=== PATIENT | female | born 2005 | race Caucasian/White ===

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

== ENCOUNTER 2023-01-15 13:47 | Outpatient (REF) | payer OTHER, SELFPAY | END 2023-01-15 13:48 | disposition home or self-care (01) | LOC: LBN 13:47 | PROVIDERS: PCP Pediatrics; Visit Provider Obstetrics & Gynecology | DX: R35.0 Frequency of micturition (principal) | CPT/HCPCS: 87077; 87086; 87186 ==

== ENCOUNTER 2023-02-27 17:59 | Emergency (ER) | payer OTHER, SELFPAY ==
[2023-02-27 18:09] VITALS: BP 115/50; PULSE 98; RESP 22; TEMP 37.2; O2SAT 98
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
[2023-02-27 18:31] LABS: HCG Qual (Urine) Negative
[2023-02-27 18:32] LABS: Bilirubin Negative (Negative); Blood Trace-intact (Negative); Clarity Clear (Clear); Glucose Negative (Negative); Ketones Negative (Negative); Leukocyte Esterase Small (Negative); Nitrite Negative (Negative); Urobilinogen 0.2 mg/dL (Up to 0.2)
[2023-02-27 18:44] LABS: Bacteria Negative HPF (Negative); C & S Indicated? No/Sq. Contamination; Crystals Negative HPF (Negative); Epithelial Cells Moderate HPF (Negative); Mucus Trace (Negative); Other Cells Rare Transitional (Negative); RBC 0-2 HPF (0-2)
[2023-02-27] MEDS: Cefpodoxime 200 MG TAB PO (18:51)
== END 2023-02-27 18:52 | disposition home or self-care (01) ==
PROVIDERS: Emergency Provider Physician Assistant; PCP Pediatrics
DX: N39.0 Urinary tract infection, site not specified
CPT/HCPCS: 99283; 81003; 81015; 81025; 99284

== ENCOUNTER 2023-03-04 16:35 | Emergency (ER) | payer OTHER, SELFPAY ==
[2023-03-04 16:44] VITALS: BP 117/47; PULSE 90; RESP 18; TEMP 37.2; O2SAT 98
[2023-03-04 16:53] VITALS: BP 117/47; PULSE 90; RESP 18; TEMP 37.2; O2SAT 98
--- NOTE | 2023-03-04 17:00 | DI.CT_ITS ---
Exam(s) CT ABDOMEN PELVIS W EXAM: CT ABDOMEN PELVIS W CLINICAL HISTORY: RLQ pain TECHNIQUE: Imaging Protocol: Axial computed tomography images with coronal and sagittal reformatted images were created and reviewed CONTRAST MATERIAL: Intravenous: Omnipaque 350 Contrast volume:87 mL Oral: No COMPARISON: CT CT ABDOMEN PELVIS W from 11/04/2020 FINDINGS: ABDOMEN: Lung Bases: Normal where visualized. Liver: Normal density. There is a 2-3 mm hypodensity in the right lobe of the liver. It is too small for further characterization. No suspicious hepatic lesions are seen. Portal, Superior Mesenteric, and Splenic Veins: Unremarkable. Gallbladder and Biliary Tract: No radiodense calculus or dilation. Pancreas: Normal density, no abnormal calcifications or inflammatory process. Spleen: Normal. Adrenals: No masses seen. Kidneys: Normal size, contour and axis. No radiodense stones or obstructive uropathy. No masses seen. Abdominal Aorta: Abdominal portion non-dilated. Bowel: No obstruction or bowel wall thickening. Appendix is unremarkable. Peritoneal Cavity: No ascites, collection or mesenteric inflammatory response. No free air. Lymph Nodes: Within normal limits. Bones: Within normal limits for the patient's age. Soft Tissues: Unremarkable. PELVIS: Bladder: Symmetric distention, no gross wall thickening. Reproductive Organs: Unremarkable as visualized. Lymph Nodes: Within normal limits. Bones: Within normal limits for the patient's age. IMPRESSION: 1. No acute abdominal or pelvic process. 2. Normal appendix. 3. Findings were discussed with the emergency department at 6:31 p.m. on 03/04/2023. RADIATION DOSE DELIVERED: Total DLP DATA REPOSITORY: All CT scans at this facility are submitted to the National Radiology Data Registry (NRDR) Dose Index Registry (DIR) with the [employer] (ACR). RADIATION OPTIMIZATION: All CT scans at this facility use at least one of these dose optimization te chniques: automated exposure control; mA and/or kV adjustment per patient size (includes targeted exa ms where dose is matched to clinical indication); or iterative reconstruction.
[2023-03-04 17:03] LABS: Bilirubin Negative (Negative); Blood Trace-lysed (Negative); Clarity Clear (Clear); Glucose Negative (Negative); Ketones Negative (Negative); Leukocyte Esterase Negative (Negative); Nitrite Negative (Negative); Urobilinogen 0.2 mg/dL (Up to 0.2); pH 6.5 (5-8)
[2023-03-04 17:11] LABS: Bacteria Negative HPF (Negative); C & S Indicated? No; Casts Negative LPF (Negative); Crystals Negative HPF (Negative); Epithelial Cells Rare HPF (Negative); Mucus Negative (Negative); RBC 0-2 HPF (0-2); WBC Negative HPF (0-5)
[2023-03-04] MEDS: ACETAMINOPHEN 1,000 MG/100 ML BTL 400 MG IVPB (17:29)
[2023-03-04] MEDS: Lactated Ringers 1,000 ML 1000 ML IV (17:29)
[2023-03-04 17:37] LABS: Abs Immature Grans 0.01 10^3/uL (0.0-0.06); Absolute Basophil Count 0.04 10^3/uL (0.0-0.2); Absolute Eosinophil Count 0.12 10^3/uL (0.0-0.7); Absolute Lymphocyte Count 3.13 10^3/uL (1.2-3.4); Absolute Monocyte Count 0.42 10^3/uL (0.1-0.8); Absolute Neutrophil Count 3.65 10^3/uL (1.2-6.7); Basophils % 0.5; Eosinophils % 1.6; HCT 39.7 % (36.0-46.0); HGB 13.9 g/dL (11.2-15.7); Immature Grans % 0.1; Lymphocytes % 42.5; MCH 31.8 pg (27.0-33.0); MCV 91 fL (80-95); MPV 10.7 fL (8.0-11.0); Monocytes % 5.7; Neutrophils % 49.6; Platelet Count 243 10^3/uL (130-400); RBC 4.37 10^6/uL (3.93-5.22); RDW 11.9 % (11.7-14.6); RDW-SD 39.6 fL; WBC 7.37 10^3/uL (4.4-10.8)
[2023-03-04 17:57] LABS: ALT 15 U/L (14-59); AST 10 U/L (15-37); Albumin 4.7 g/dL (3.4-5.0); Alkaline Phosphatase 82 U/L (46-116); Anion Gap 11.4 mmol/L (3-11); BUN 10 mg/dL (7-18); Bilirubin, Total 0.5 mg/dL (0.2-1.0); CO2 24.6 mmol/L (21.0-32.0); CREATININE 0.7 mg/dL (0.55-1.02); Calcium 9.4 mg/dL (8.5-10.1); Chloride 107 mmol/L (98-107); Estimated GFR 127.69 (mL/min/1.73m2); Glucose 85 mg/dL (74-106); Lipase 35 U/L (16-77); Sodium 143 mmol/L (136-145); Total Protein 7.7 g/dL (6.4-8.2)
[2023-03-04] MEDS: Normal Saline - Diluent 50 ML VIAL IJ (18:04)
[2023-03-04] MEDS: Omnipaque 350 MG/ML 100 ML BTL IJ (18:05)
[2023-03-04] MEDS: Prochlorperazine 10 MG TAB PO (19:03)
[2023-03-04 19:04] VITALS: BP 117/47; PULSE 90; RESP 18; TEMP 37.2; O2SAT 98
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
== END 2023-03-04 19:05 | disposition home or self-care (01) ==
PROVIDERS: Emergency Provider Physician Assistant; PCP Pediatrics
DX: R10.31 Right lower quadrant pain (principal); R10.32 Left lower quadrant pain
CPT/HCPCS: 80053; 83690; 96361; 96374; 99285; 74177; 81003; 81015; 85025; 99284; J0131; J3490

== ENCOUNTER 2023-03-04 16:46 | Outpatient (REF) | payer OTHER, SELFPAY | END 2023-03-04 16:47 | disposition home or self-care (01) | LOC: LBN 16:46 | PROVIDERS: PCP Pediatrics; Visit Provider Nurse Practitioner Family | DX: N30.01 Acute cystitis with hematuria (principal) | CPT/HCPCS: 87086 ==

== ENCOUNTER 2023-06-23 06:31 | Emergency (ER) | payer OTHER, SELFPAY ==
[2023-06-23 06:42] VITALS: BP 131/65; PULSE 111; RESP 16; TEMP 36.7; O2SAT 99
[2023-06-23 07:08] VITALS: BP 131/65; PULSE 111; RESP 16; TEMP 36.7; O2SAT 99
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
[2023-06-23] MEDS: Erythromycin Ophth Oint 3.5 GM TUBE OP (07:09)
[2023-06-23] MEDS: Fluorescein STRIPS 100/BOX 1 MG OP (07:09)
[2023-06-23] MEDS: Tetracaine 0.5% 4 ML BTL OP (07:10)
[2023-06-23] MEDS: Balanced Salt Solution 15 ML BTL OP (07:10)
== END 2023-06-23 07:29 | disposition home or self-care (01) ==
PROVIDERS: Emergency Provider Emergency Medicine; PCP Pediatrics
DX: S05.02XA Injury of conjunctiva and corneal abrasion without foreign body, left eye, initial encounter (principal); W50.0XXA Accidental hit or strike by another person, initial encounter
CPT/HCPCS: 99283

== ENCOUNTER 2023-08-15 15:21 | Outpatient (REF) | payer OTHER, SELFPAY | END 2023-08-15 15:22 | disposition home or self-care (01) | LOC: LBN 15:21 | PROVIDERS: PCP Pediatrics; Visit Provider Advanced Practice Midwife | DX: N89.8 Other specified noninflammatory disorders of vagina (principal); B37.9 Candidiasis, unspecified | CPT/HCPCS: 87480; 87510; 87660 ==

== ENCOUNTER 2023-09-26 17:05 | Emergency (ER) | payer OTHER, SELFPAY ==
[2023-09-26 17:08] VITALS: BP 119/74; PULSE 115; RESP 18; TEMP 37; O2SAT 96
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
[2023-09-26] MEDS: Amox. 875/Clav. 125, 2 TABS/BTL 1 TAB PO (18:54)
== END 2023-09-26 19:01 | disposition home or self-care (01) ==
PROVIDERS: Emergency Provider Physician Assistant; PCP Pediatrics
DX: R68.84 Jaw pain (principal); K04.7 Periapical abscess without sinus
CPT/HCPCS: 99283

== ENCOUNTER 2024-03-19 13:25 | Outpatient (CLI) | payer OTHER, SELFPAY ==
[2024-03-19 12:38] LABS: HCG Quant, Pregnancy 3 mIU/mL (1-3)
--- OUTSIDE RECORDS SUMMARY | 2024-03-19 13:33 | XMS_ITS | Clinical Summary ---
Author Organization [facility] Address [facility] [place] [address] Care Team Providers Care Turkey Cleaner Name Role Phone Abbey Romero MD Primary Care Provider [phone] Social History Tobacco Use Types Packs/Day Years Used Date Smoking Tobacco: Never Assessed Sex and Gender Information Value Date Recorded Sex Assigned at Not on file Gender Identity Not on file Sexual Orientation Not on file Plan of Treatment Health Maintenance Due Date Last Done Comments Chlamydia Screening 2018 HPV vaccine (1 - 3-dose series) 2018 HIV screen 2021 Hepatitis C Screening 2021 Hepatitis B vaccine (0-59 yrs) (1) 2022 Tetanus/Diphtheria/Pertussis Vaccines (1 - Tdap) 05/06 Covid-19 Vaccine (1 - 2023- season) 2024 Influenza (Flu) vaccine (1 o f 1 - Influenza standard series) 01/05/2024 Care Teams Turkey Cleaner Relationship Specialty Start Date End Date Abbey Romero MD [facility] [place] [address] PCP - General 03/28/10
--- OUTSIDE RECORDS SUMMARY | 2024-03-19 13:33 | XMS_ITS | Encounter Summary ---
Author Organization [facility] Address [address] [place] [address] Care Team Providers Care Casual Shoe Inspector Name Role Phone Unknown, Provider Primary Care Provider Addy aldana Encounter Details Date Type Department Care Team (Late st Contact Info) Description 01/29/2020 Lab Requisition [facility] Pathology & Laboratory Medicine - [facility] [address] [place] [address] Outr Resulting Lab, Provider Social History Tobacco Use Types Packs/Day Years Used Date Smoking Tobacco: Never Assessed Comments Unknown Sex and Gender Information Value Date Recorded Sex Assigned at Not on file Legal Sex Female 12:08 EDT Gender Identity Not on file Sexual Orientation Not on file documented as of this encounter Plan of Treatment Not on file documented as of this encounter Procedures Procedure Name Priority Date/Time Associated Diagnosis Comments DO NOT ORDER STANDALONE - BROAD COVID TEST Today 01/29/2020 9:05 EDT COVID-19 TESTING Routine 01/29/2020 9:05 EDT documented in this encounter Results * DO NOT ORDER STANDALONE - BROAD COVID TEST (01/29/2020 9:05 EDT) COVID-19 rt-PCR Result NEGATIVE Negative 01/31/2020 0:01 EDT [facility] Comment: 2019-novel Coronavirus (2019-nCoV) not detected by the qRT-PCR assay. Consider testing for other respiratory viruses or re-collecting for 2019-nCoV testing. Note: Optimum timing for peak viral levels during infections caused by 2019-nCoV have not been determined. Collection of multiple specimens from the same patient may be necessary to detect the virus. Limitations Positive results are indicative of active infection with SARS-CoV-2 but do not rule out bacterial infection or co-infection with other viruses. The agent detected may not be the definite cause of disease. In addition, detection of viral RNA may not indicate the presence of infectious virus or that SARS-CoV-2 is the causative agent for clinical symptoms. Negative results do not preclude SARS-CoV-2 infection and should not be used as the sole basis for patient management decisions. Negative results must be combined with clinical observations, patient history, and epidemiological information. False negative results may also occur if amplification inhibitors are present in the specimen or if inadequate numbers of organisms are present in the specimen. Optimum specimen types and timing for peak viral levels during infections caused by SARS-CoV-2 have not been fully determined. Collection of multiple specimens (types and time points) from the same patient may be necessary to detect the virus. The test was validated for use with upper respiratory specimens obtained via nasopharyngeal or oropharyngeal swabs in VTM, UTM, M4, M5, M6, saline, and MTM media. The performance of this test has not been established for other specimens. Specimens collected using other FDA recommended Specimen Collection Materials listed in the FDA COVID-19 Diagnostic Technologies communication (July 30, 2019) are processed with the caveat that they were not all validated for use with this test and the result must be interpreted in this context. Furthermore, a false negative results may occur if a specimen is improperly collected, transported or handled. If the virus mutates in the RT-PCR target region, SARS-CoV-2 may not be detected or may be detected less predictably. Inhibitors or other types of interference may produce a false negative result. An interference study evaluating the effect of common cold medications was not performed. This test is not FDA-cleared but its performance characteristics were established by our CLIA-certified, CAP-accredited, high complexity laboratory in accordance with CLIA regulations, [employer] (CAP) guidelines (Jul 23, 2019), and FDA guidance (Jul 04, 2019). This test is only for use under the Food and Drug Administration's Emergency Use Authorization. Swab ENTIRE NASOPHARYNX / Unknown 01/29/2020 9:05 EDT 01/29/2020 18:38 EDT us Provider Outr Resulting Lab MICROBIOLOGY - GENER AL ORDERABLES Final Result [employer] [place], [place] * COVID-19 TESTING (01/29/2020 9:05 EDT) COVID-19 rt-PCR Result NEGATIVE Negative 01/31/2020 2:23 EDT [facility] Comment: 2019-novel Coronavirus (2019-nCoV) not detected by the qRT-PCR assay. Consider testing for other respiratory viruses or re-collecting for 2019-nCoV testing. Note: Optimum timing for peak viral levels during infections caused by 2019-nCoV have not been determined. Collection of multiple specimens from the same patient may be necessary to detect the virus. Limitations Positive results are indicative of active infection with SARS-CoV-2 but do not rule out bacterial infection or co-infection with other viruses. The agent detected may not be the definite cause of disease. In addition, detection of viral RNA may not indicate the presence of infectious virus or that SARS-CoV-2 is the causative agent for clinical symptoms. Negative results do not preclude SARS-CoV-2 infection and should not be used as the sole basis for patient management decisions. Negative results must be combined with clinical observations, patient history, and epidemiological information. False negative results may also occur if amplification inhibitors are present in the specimen or if inadequate numbers of organisms are present in the specimen. Optimum specimen types and timing for peak viral levels during infections caused by SARS-CoV-2 have not been fully determined. Collection of multiple specimens (types and time points) from the same patient may be necessary to detect the virus. The test was validated for use with upper respiratory specimens obtained via nasopharyngeal or oropharyngeal swabs in VTM, UTM, M4, M5, M6, saline, and MTM media. The performance of this test has not been established for other specimens. Specimens collected using other FDA recommended Specimen Collection Materials listed in the FDA COVID-19 [employer] communication (July 30, 2019) are processed with the caveat that they were not all validated for use with this test and the result must be interpreted in this context. Furthermore, a false negative results may occur if a specimen is improperly collected, transported or handled. If the virus mutates in the RT-PCR target region, SARS-CoV-2 may not be detected or may be detected less predictably. Inhibitors or other types of interference may produce a false negative result. An interference study evaluating the effect of common cold medications was not performed. This test is not FDA-cleared but its performance characteristics were established by our CLIA-certified, CAP-accredited, high complexity laboratory in accordance with CLIA regulations, [employer] (CAP) guidelines (Jul 23, 2019), and FDA guidance (Jul 04, 2019). This test is only for use under the Food and Drug Administration's Emergency Use Authorization. Performing Lab [employer] [facility] 01/31/2020 2:23 EDT [facility] Swab 01/29/2020 9:05 EDT 01/29/2020 18:38 EDT us Provider Outr Resulting Lab MICROBIOLOGY - GENER AL ORDERABLES Final Result [facility] [address] [place] [address] [facility] [place], [place] documented in this encounter Visit Diagnoses Not on filedocumented in this encounter Care Teams Casual Shoe Inspector Relationship Specialty Start Date End Date Unknown, Provider, PCP - General 01/05/20 documented as of this encounter
--- OUTSIDE RECORDS SUMMARY | 2024-03-19 13:33 | XMS_ITS | Encounter Summary ---
Author Organization [facility] Address [address] [place] [address] Care Team Providers Care Branch Service Representative Name Role Phone Unknown, Provider Primary Care Provider Unava ilable Encounter Details Date Type Department Care Team (Late st Contact Info) Description 02/01/2020 Lab Requisition [facility] Pathology & Laboratory Medicine - [address] [address] Edmond Alba, [address] [place] [address] Hypertrophy of tonsils; Halitosis Social History Tobacco Use Types Packs/Day Years Used Date Smoking Tobacco: Never Assessed Interpersonal Safety Answer Date Record ed Physically Hurt Never 02/05/2020 Verbally Threaten Not on file 02/05/2020 Comments Unknown Sex and Gender Information Value Date Recorded Sex Assigned at Not on file Legal Sex Female 12:08 EDT Gender Identity Not on file Sexual Orientation Not on file documented as of this encounter Plan of Treatment Not on file documented as of this encounter Procedures Procedure Name Priority Date/Time Associated Diagnosis Comments SURGICAL PATHOLOGY Today 02/01/2020 7:55 EDT Hypertrophy of tonsils Halitosis documented in this encounter Results * SURGICAL PATHOLOGY (02/01/2020 7:55 EDT) Final Diagnosis A. TONSIL, RIGHT, TONSILLECTOMY: - Lymphoid tissue consistent with tonsil with no specific gross pathologic features. Gross only. B. TONSIL, LEFT, TONSILLECTOMY: - Lymphoid tissue consistent with tonsil with no specific gross pathologic features. Gross only. 02/04/2020 13:06 EDT [facility] Attestation By the signature below, the attending physician certifies that they have 1) personally conducted a gross and/or microscopic examination of the described specimen(s), and/or personally interpreted the results of laboratory testing of the described specimen(s), and 2) personally rendered or confirmed the above diagnosis. 02/04/2020 13:06 [facility] at 1306 Clinical History Chronic tonsil hypertrophy; tonsil stones; halitosis 02/04/2020 13:06 T [facility] Gross Description A. Received in formalin labelled with proper patient identification (initials T, M) and right tonsil is a 3.5 x 2.5 x 2.4 cm ovoid palatine tonsil. The mucosal surface is pink-acevedo with prominent crypts and a moderate amount of attached blood clot. Sectioning reveals lobulated pink-acevedo cut surfaces. The crypts contain a minute amount of grumous yellow white material. No masses or lesions identified. The specimen is submitted for gross examination only. No sections submitted. B. Received in formalin labelled with proper patient identification (initials T, M) and left tonsil is a 3.2 x 2.5 x 2.0 cm palatine tonsil. The mucosal surface is pink-acevedo with prominent crypts. Sectioning reveals lobulated pink-acevedo cut surfaces. The crypts contain a moderate amount of grumous yellow white material. No masses or lesions are identified. The specimen is submitted for gross examination only. No sections submitted. CARIN MARIEUC 02/03/2020 10:11 02/04/2020 13:06 EDT [facility] Performing Lab [facility] 02/04/2020 13:06 T [facility] Scanned Images 02/04/2020 13:06 T [facility] Tissue SPECIMEN FROM TONSIL / Unknown 02/01/2020 7:55 EDT 02/01/2020 16:15 EDT Tissue specimen (specimen) SPECIMEN FROM TONSIL / Unknown 02/01/2020 7:55 EDT 02/01/2020 16:15 EDT us Edmond Alba DO PATHOLOGY ORDERABLES Fi nal Result [facility] [address] [place] [id number] documented in this encounter Visit Diagnoses Diagnosis Hypertrophy of tonsils Hypertrophy of tonsils alone Halitosis Other symptoms involving head and neck documented in this encounter Care Teams Branch Service Representative Relationship Specialty Start Date End Date Unknown, Provider, PCP - General 01/05/20 documented as of this encounter
--- OUTSIDE RECORDS SUMMARY | 2024-03-19 13:33 | XMS_ITS | Encounter Summary ---
Author Organization [facility] Address [address] [place] [address] Care Team Providers Care Tug Boat Captain Name Role Phone Unknown, Provider Primary Care Provider Unava ilable Encounter Details Date Type Department Care Team (Late st Contact Info) Description 04/09/2022 Lab Requisition [facility] Pathology & Laboratory Medicine - [facility] [address] [place] [address] Outr Resulting Lab, Provider Social History Tobacco [...] Procedure Name Priority Date/Time Associated Diagnosis Comments HOLD SST Today 04/09/2022 10:55 EST RUBELLA IGG ANTIBODY Today 04/09/2022 10:55 EST VARICELLA IGG ANTIBODY Today 04/09/2022 10:55 EST documented in this encounter Results * HOLD SST (04/09/2022 10:55 EST) Hold Hold 04/09/2022 17:46 EST [facility] Blood VENOUS BLOOD / Unknown 04/09/2022 10:55 EST 04/09/2022 16:41 EST us Provider Outr Resulting Lab LAB INFO SERVICE AND SUPPORT & PHONE RESULT Final Result [facility] [address] [place] [address] * VARICELLA IGG ANTIBODY (04/09/2022 10:55 EST) Varicella IgG Ab Negative See Note 04/10/2022 10:16 EST [facility] Comment:Absence of detectabl e Varicella Zoster virus IgG antibodies. A negative result generally indicates no detectable antibody, but does not rule out acute infection. If VZV exposure is suspected, a second sample should be collected and tested no less than one or two weeks later. Blood VENOUS BLOOD / Unknown 04/09/2022 10:55 EST 04/09/2022 16:41 EST us Provider Outr Resulting Lab IMMUNOLOGY AND SEROL OGY ORDERABLES Final Result Performing Organization Address [facility] Co de Phone Number [facility] [address] [place] [address] * RUBELLA IGG ANTIBODY (04/09/2022 10:55 EST) Rubella IgG Ab Negative See Note 04/10/2022 10:28 EST [facility] Comment:Sample is considered negative for IgG antibodies to Rubella virus. A negative result presumes that immunity has not been acquired. If exposure to Rubella virus is suspected despite a negative finding, a second specimen should be collected and tested for Rubella IgG Ab one or two weeks later. Blood VENOUS BLOOD / Unknown 04/09/2022 10:55 EST 04/09/2022 16:41 EST us Provider Outr Resulting Lab CHEMISTRY & BLOOD GA S ORDERABLES Final Result Performing Organization Address City/[facility] Co de Phone Number [facility] [address] [place] [address] documented in this encounter Visit Diagnoses Not on filedocumented in this encounter Care Teams Tug Boat Captain Relationship Specialty Start Date End Date Unknown, Provider, PCP - General 01/05/20 documented as of this encounter
--- OUTSIDE RECORDS SUMMARY | 2024-03-19 13:33 | XMS_ITS | Encounter Summary ---
Author Organization [facility] Address [address] [place] [address] Care Team Providers Care Petrography Teacher Name Role Phone Unknown, Provider Primary Care Provider Unava ilable Encounter Details Date Type Department Care Team (Late st Contact Info) Description 09/13/2021 Lab Requisition [facility] Pathology & Laboratory Medicine - [address] [address] Outr Resulting Lab, Provider Social History Tobacco [...] Procedure Name Priority Date/Time Associated Diagnosis Comments CHLAMYDIA/N. GONORRHOEAE AMPLIFIED NUCLEIC ACID Routine 09/12/2021 15:25 EDT documented in this encounter Results * CHLAMYDIA/N. GONORRHOEAE AMPLIFIED RNA (09/12/2021 15:25 EDT) Neisseria gonorrhoeae Result Negative Negative 09/14/2021 14:33 EDT [facility] Chlamydia trachomatis Result Negative Negative 09/14/2021 14:33 EDT [facility] Swab ENTIRE VAGINA / Unknown 09/12/2021 15:25 EDT 09/13/2021 17:08 EDT us Provider Outr Resulting Lab MICROBIOLOGY - GENER AL ORDERABLES Final Result [facility] [address] [place] [address] documented in this encounter Visit Diagnoses Not on filedocumented in this encounter Care Teams Petrography Teacher Relationship Specialty Start Date End Date Unknown, Provider, PCP - General 01/05/20 documented as of this encounter
--- OUTSIDE RECORDS SUMMARY | 2024-03-19 13:33 | XMS_ITS | Encounter Summary ---
Author Organization [facility] Address [address] [place] [address] Care Team Providers Care Sampler Pickup Name Role Phone Unknown, Provider Primary Care Provider Unava ilable Encounter Details Date Type Department Care Team (Late st Contact Info) Description 08/01/2022 Lab Requisition [facility] Pathology & Laboratory Medicine - [facility] [address] [place] [address] Outr Resulting Lab, Provider Social History Tobacco [...] Comments CHLAMYDIA/N. GONORRHOEAE AMPLIFIED NUCLEIC ACID Routine 07/31/2022 13:15 EDT documented in this encounter Results * CHLAMYDIA/N. GONORRHOEAE AMPLIFIED RNA (07/31/2022 13:15 EDT) Neisseria gonorrhoeae Result Negative Negative 08/02/2022 13:14 EDT [facility] Chlamydia trachomatis Result Negative Negative 08/02/2022 13:14 EDT [facility] Urine URINE / Unknown 07/31/2022 1 3:15 EDT 08/01/2022 20:13 EDT Narrative [facility] - 08/02/2022 13:14 EDT A first catch urine specimen is acceptable for detection of Gonorrhea and Chlamydia, but might detect up to 10% fewer infections when compared with vaginal and endocervical swab samples. us Provider Outr Resulting Lab MICROBIOLOGY - GENER AL ORDERABLES Final Result [facility] [address] [place] [address] documented in this encounter Visit Diagnoses Not on filedocumented in this encounter Care Teams Sampler Pickup Relationship Specialty Start Date End Date Unknown, Provider, PCP - General 01/05/20 documented as of this encounter
--- OUTSIDE RECORDS SUMMARY | 2024-03-19 13:33 | XMS_ITS | Encounter Summary ---
Author Organization [facility] Address [address] [place] [address] Care Team Providers Care World Travel Counselor Name Role Phone Unknown, Provider Primary Care Provider Addy aldana Encounter Details Date Type Department Care Team (Late st Contact Info) Description 02/01/2021 Lab Requisition [facility] Pathology & Laboratory Medicine - [address] [address] Outr Resulting Lab, Provider Social History Tobacco [...] Procedure Name Priority Date/Time Associated Diagnosis Comments CELIAC DISEASE PANEL Routine 02/01/2021 13:19 EDT documented in this encounter Results * CELIAC DISEASE PANEL (02/01/2021 13:19 EDT) Tissue Transglutaminase Antibody IGA <1.2 <4.0 U/mL 02/06/2021 11:04 EDT [facility] Comment: A negative result may be due to IgA deficiency and does not rule out celiac disease. ? Negative: ??<4.0 U/mL ? Weak Positive: 4.0 -1 0.0 U/mL ? Positive: ??>10.0 U/mL Results were obtained with the CennoxA Lite R h-tTG IgA DANI assay on the [employer]. The use of this assay and normal range (result interpretation) has not been established for pediatric samples. IgA 197 61 - 348 mg/dL 02/06/2021 11:04 EDT [facility] Celiac Disease Interpretation Negative Serology. Celiac disease unlikely. Approximately 10% of patients with celiac disease are seronegative. Patients who are already adhering to a gluten-free diet may also be seronegative. If celiac disease is highly clinically suspected, referral to gastroenterology for additional evaluation is recommended. 02/06/2021 11:04 EDT [facility] Blood VENOUS BLOOD / Unknown 02/01/2021 13:19 EDT 02/01/2021 21:34 EDT us Provider Outr Resulting Lab IMMUNOLOGY AND SEROL OGY ORDERABLES Final Result [facility] [address] [place] [address] documented in this encounter Visit Diagnoses Not on filedocumented in this encounter Care Teams World Travel Counselor Relationship Specialty Start Date End Date Unknown, Provider, PCP - General 01/05/20 documented as of this encounter
--- OUTSIDE RECORDS SUMMARY | 2024-03-19 13:33 | XMS_ITS | Clinical Summary ---
Author Organization [facility] Address [address] [place] [address] Care Team Providers Care Resident Surgeon Name Role Phone Unknown, Provider Primary Care Provider Unava ilable Social History Tobacco Use Types Packs/Day Years [...] Health Maintenance Due Date Last Done Comments Hepatitis B Vaccine (1 of 3 - 19+ 3-dose series) 05/06 COVID-19 Vaccine ( season) 2024 Hepatitis C Screen Completed 04/09/2022 Procedures Procedure Name Priority Date/Time Associated Diagnosis Comments HEPATITIS C AB W REFLEX TO HCV RNA BY PCR Today 04/09/2022 10:55 EST from Last 3 Months or Most Recently Relevant to Health Maintenance Results * HEPATITIS C AB W REFLEX TO HCV RNA BY PCR (04/09/2022 10:55 EST) Hep C Antibody Negative Negative 04/10/2022 9:53 EST [facility] Blood VENOUS BLOOD / Unknown 04/09/2022 10:55 EST 04/09/2022 16:41 EST us Provider Outr Resulting Lab CHEMISTRY & BLOOD GA S ORDERABLES Final Result [facility] [address] [place] [address] from Last 3 Months or Most Recently Relevant to Health Maintenance Insurance [employer] respiratory therapy assistant Care Teams Resident Surgeon Relationship Specialty Start Date End Date Unknown, Provider, PCP - General 01/05/20
--- OUTSIDE RECORDS SUMMARY | 2024-03-19 13:33 | XMS_ITS | Encounter Summary ---
Author Organization [facility] Address [address] [place] [address] Care Team Providers Care Release And Technical Records Clerk Name Role Phone Unknown, Provider Primary Care Provider Unava ilable Encounter Details Date Type Department Care Team (Late st Contact Info) Description 04/09/2022 Lab Requisition [facility] Pathology & Laboratory Medicine - [address] [address] Outr Resulting Lab, Provider Social History Tobacco [...] Comments CHLAMYDIA/N. GONORRHOEAE AMPLIFIED NUCLEIC ACID Routine 04/09/2022 10:20 EST documented in this encounter Results * CHLAMYDIA/N. GONORRHOEAE AMPLIFIED RNA (04/09/2022 10:20 EST) Neisseria gonorrhoeae Result Negative Negative 04/11/2022 14:50 EST [facility] Chlamydia trachomatis Result Negative Negative 04/11/2022 14:50 EST [facility] Swab ENTIRE VAGINA / Unknown 04/09/2022 10:20 EST 04/10/2022 7:47 EST us Provider Outr Resulting Lab MICROBIOLOGY - GENER AL ORDERABLES Final Result [facility] [address] [place] [address] documented in this encounter Visit Diagnoses Not on filedocumented in this encounter Care Teams Release And Technical Records Clerk Relationship Specialty Start Date End Date Unknown, Provider, PCP - General 01/05/20 documented as of this encounter
--- OUTSIDE RECORDS SUMMARY | 2024-03-19 13:33 | XMS_ITS | Encounter Summary ---
Author Organization [facility] Address [address] [place] [address] Care Team Providers Care Lacquer Mixer Name Role Phone Unknown, Provider Primary Care Provider Unajax ilable Encounter Details Date Type Department Care Team (Late st Contact Info) Description 03/14/2022 Lab Requisition [facility] Pathology & Laboratory Medicine - [address] [address] Outr Resulting Lab, Provider Social History Tobacco [...] Procedure Name Priority Date/Time Associated Diagnosis Comments QUANTIFERON MITOGEN (PERFORMABLE) Today 03/13/2022 10:55 EST QUANTIFERON TB2 (PERFORMABLE) Today 03/13/2022 10:55 EST QUANTIFERON TB1 (PERFORMABLE) Today 03/13/2022 10:55 EST QUANTIFERON NIL (PERFORMABLE) Today 03/13/2022 10:55 EST QUANTIFERON INTERPRETATION (PERFORMABLE) Today 03/13/2022 10:55 EST QUANTIFERON TB GOLD PLUS Routine 03/13/2022 10:55 EST documented in this encounter Results * QUANTIFERON INTERPRETATION (PERFORMABLE) (03/13/2022 10:55 EST) Quantiferon Interpretation Negative Negative 03/15/2022 12:12 EST [facility] Comment:No interferon-gamma response to M. tuberculosis antigens was detected. ??Infection with M. tuberculosis is unlikely. A single negative result does not exclude infection with M. tuberculosis. ??In patients at high risk for M. tuberculosis infection, a second test should be considered. TB1 Ag minus Nil 0.07 IU/ml 03/15/20 12:12 EST [facility] TB2 Ag minus Nil 0.08 IU/mL 03/15/20 12:12 EST [facility] Blood VENOUS BLOOD / Unknown 03/13/2022 10:55 EST 03/15/2022 11:14 EST Narrative [facility] - 03/15/2022 12:12 EST Results were obtained with the [employer] QuantiFERON-TB Gold Plus CLIA. New platform in use 01/11/2021 us Provider Outr Resulting Lab IMMUNOLOGY AND SEROL OGY ORDERABLES Final Result Performing Organization Address [facility] de Phone Number [facility] [address] [place] [address] * QUANTIFERON MITOGEN (PERFORMABLE) (03/13/2022 10:55 EST) Blood VENOUS BLOOD / Unknown 03/13/2022 10:55 EST 03/14/2022 16:31 EST us Provider Outr Resulting Lab IMMUNOLOGY AND SEROL OGY ORDERABLES Final Result Performing Organization Address [facility] Co de Phone Number [facility] [address] [place] [address] * QUANTIFERON TB2 (PERFORMABLE) (03/13/2022 10:55 EST) Blood VENOUS BLOOD / Unknown 03/13/2022 10:55 EST 03/14/2022 16:31 EST us Provider Outr Resulting Lab IMMUNOLOGY AND SEROL OGY ORDERABLES Final Result Performing Organization Address [facility] Co de Phone Number [facility] [address] [place] [address] * QUANTIFERON TB1 (PERFORMABLE) (03/13/2022 10:55 EST) Blood VENOUS BLOOD / Unknown 03/13/2022 10:55 EST 03/14/2022 16:31 EST us Provider Outr Resulting Lab IMMUNOLOGY AND SEROL OGY ORDERABLES Final Result Performing Organization Address [facility] de Phone Number [facility] [address] [place] [address] * QUANTIFERON NIL (PERFORMABLE) (03/13/2022 10:55 EST) Blood VENOUS BLOOD / Unknown 03/13/2022 10:55 EST 03/14/2022 16:31 EST us Provider Outr Resulting Lab IMMUNOLOGY AND SEROL OGY ORDERABLES Final Result Performing Organization Address [facility] Co de Phone Number [facility] [address] [place] [address] documented in this encounter Visit Diagnoses Not on filedocumented in this encounter Care Teams Lacquer Mixer Relationship Specialty Start Date End Date Unknown, Provider, PCP - General 01/05/20 documented as of this encounter
--- OUTSIDE RECORDS SUMMARY | 2024-03-19 13:33 | XMS_ITS | Encounter Summary ---
Author Organization [facility] Address [address] [place] [address] Care Team Providers Care Logging Worker Name Role Phone Unknown, Provider Primary Care Provider Unava ilable Encounter Details Date Type Department Care Team (Late st Contact Info) Description 04/09/2022 Lab Requisition [facility] Pathology & Laboratory Medicine - [address] [address] Outr Resulting Lab, Provider Social History Tobacco [...] Comments HOLD SST Today 04/09/2022 10:55 EST HEPATITIS C AB W REFLEX TO HCV RNA BY PCR Today 04/09/2022 10:55 EST HEPATITIS B SURFACE ANTIGEN Today 04/09/2022 10:55 EST documented in this encounter Results * HOLD SST (04/09/2022 10:55 EST) Hold Hold 04/09/2022 17:46 EST [facility] Blood VENOUS BLOOD / Unknown 04/09/2022 10:55 EST 04/09/2022 16:42 EST us Provider Outr Resulting Lab LAB INFO SERVICE AND SUPPORT & PHONE RESULT Final Result [facility] [address] [place] [address] * HEPATITIS B SURFACE ANTIGEN (04/09/2022 10:55 EST) Hep B Surface Ag Negative Negative 04/10/2022 9:14 EST [facility] Blood VENOUS BLOOD / Unknown 04/09/2022 10:55 EST 04/09/2022 16:41 EST us Provider Outr Resulting Lab CHEMISTRY & BLOOD GA S ORDERABLES Final Result Performing Organization Address City/[facility]/ZIP Co de Phone Number [facility] [address] [place] [address] * HEPATITIS C AB W REFLEX TO HCV RNA BY PCR (04/09/2022 10:55 EST) Hep C Antibody Negative Negative 04/10/2022 9:53 EST [facility] Blood VENOUS BLOOD / Unknown 04/09/2022 10:55 EST 04/09/2022 16:41 EST us Provider Outr Resulting Lab CHEMISTRY & BLOOD GA S ORDERABLES Final Result Performing Organization Address City/[facility]/ZIP Co de Phone Number [facility] [address] [place] [address] documented in this encounter Visit Diagnoses Not on filedocumented in this encounter Care Teams Logging Worker Relationship Specialty Start Date End Date Unknown, Provider, PCP - General 01/05/20 documented as of this encounter
--- OUTSIDE RECORDS SUMMARY | 2024-03-19 13:33 | XMS_ITS | Encounter Summary ---
Author Organization [facility] Address [address] [place] [address] Care Team Providers Care Punch Machine Hand Name Role Phone Unknown, Provider Primary Care Provider Unava ilable Encounter Details Date Type Department Care Team (Late st Contact Info) Description 05/08/2022 Lab Requisition [facility] Pathology & Laboratory Medicine - [facility] [address] [place] [address] Outr Resulting Lab, Provider Social History Tobacco [...] Comments CHLAMYDIA/N. GONORRHOEAE AMPLIFIED NUCLEIC ACID Routine 05/08/2022 13:20 EST documented in this encounter Results * CHLAMYDIA/N. GONORRHOEAE AMPLIFIED RNA (05/08/2022 13:20 EST) Neisseria gonorrhoeae Result Negative Negative 05/09/2022 12:19 EST [facility] Chlamydia trachomatis Result Negative Negative 05/09/2022 12:19 EST [facility] Urine URINE / Unknown 05/08/2022 1 3:20 EST 05/08/2022 22:47 EST Narrative [facility] - 05/09/2022 12:19 EST A first catch urine specimen is acceptable for detection of Gonorrhea and Chlamydia, but might detect up to 10% fewer infections when compared with vaginal and endocervical swab samples. us Provider Outr Resulting Lab MICROBIOLOGY - GENER AL ORDERABLES Final Result [facility] [address] [place] [address] documented in this encounter Visit Diagnoses Not on filedocumented in this encounter Care Teams Punch Machine Hand Relationship Specialty Start Date End Date Unknown, Provider, PCP - General 01/05/20 documented as of this encounter
--- OUTSIDE RECORDS SUMMARY | 2024-03-19 13:33 | XMS_ITS | Encounter Summary ---
Author Organization [facility] Address [address] [place] [address] Care Team Providers Care Rn Provider Relations Name Role Phone Unknown, Provider Primary Care Provider Unava ilable Encounter Details Date Type Department Care Team (Late st Contact Info) Description 05/03/2020 Lab Requisition [facility] Pathology & Laboratory Medicine - [address] [address] Outr Resulting Lab, Provider Social History Tobacco [...] Comments CHLAMYDIA/N. GONORRHOEAE AMPLIFIED NUCLEIC ACID Routine 05/02/2020 15:45 EST documented in this encounter Results * (ABNORMAL) CHLAMYDIA/N. GONORRHOEAE AMPLIFIED RNA (05/02/2020 15:45 EST) Neisseria gonorrhoeae Result Negative Negative 05/04/2020 14:24 EST [facility] Chlamydia trachomatis Result Positive(A) Negative 05/04/2020 14:24 EST [facility] Swab ENTIRE VAGINA / Unknown 05/02/2020 15:45 EST 05/03/2020 17:29 EST us Provider Outr Resulting Lab MICROBIOLOGY - GENER AL ORDERABLES Final Result [facility] [address] [place] [address] documented in this encounter Visit Diagnoses Not on filedocumented in this encounter Care Teams Rn Provider Relations Relationship Specialty Start Date End Date Unknown, Provider, PCP - General 01/05/20 documented as of this encounter
--- OUTSIDE RECORDS SUMMARY | 2024-03-19 13:33 | XMS_ITS | Encounter Summary ---
Author Organization [place] [address] Care Team Providers Care Dolly Driver Name Role Phone Abbey Romero MD Primary Care Provider [phone] Encounter Details Date Type Department Care Team (Latest Contact Info) Description 03/24/2020 12:29 PM EST - 03/24/2020 11:59 PM EST [place] [address] Discharge Disposition: Home Social History Tobacco Use Types Packs/Day Years Used Date Smoking Tobacco: Never Assessed Sex and Gender Information Value Date Recorded Sex Assigned at Not on file Gender Identity Not on file Sexual Orientation Not on file documented as of this encounter Plan of Treatment Not on file documented as of this encounter Procedures Procedure Name Priority Date/Time Associated Diagnosis Comments COVID-19 PCR Routine 03/24/2020 8:00 AM EST documented in this encounter Results * COVID-19 PCR (03/24/2020 8:00 AM EST) SARS-CoV-2 RNA Not Detected Not Detected [facility] Comment: This result should be interpreted in combination with the clinical observations, patient history and epidemiological information in making a final diagnosis. For testing of asymptomatic individuals, assay performance characteristics and clinical utility have not been evaluated. Testing for SARS-CoV-2 (Severe acute respiratory syndrome coronavirus 2, formerly known as 2019 novel coronavirus or 2019-nCoV) to aid in the diagnosis of COVID-19 is performed using the [employer] RealTime SARS-CoV-2 Assay as authorized by the FDA Emergency Use Authorization (EUA). This EUA assay is intended for In-vitro Diagnostic (IVD) use with respiratory specimens such as nasopharyngeal swabs collected from individuals during the acute phase of infection. This assay is performed based on the instructions for use provided by [employer] and additional guidance provided by [facility] and FDA. Testing is performed in the [facility] within the Department of Pathology and Laboratory Medicine at [facility], certified under the Clinical Laboratory Improvement Amendments of 1988 (CLIA), 42 U.S.C. 263a, to perform high complexity tests. Assay performance has been verified according to clinical laboratory regulatory requirements for use with specimens collected from individuals suspected of COVID-19. Test results are provided above. A result of ? Not Detected? indicates that the viral RNA target is not present above the limit of detection, but does not preclude SARS-CoV-2 infection. False negative results may occur if a specimen is improperly collected, transported or handled; if amplification inhibitors are present; or if inadequate numbers of viral particles are present in the specimen. When a diagnostic test is negative, the possibility of a false negative result should be considered in the context of a patient? s recent exposures and the presence of clinical signs and symptoms consistent with COVID-19. A result of ? Detected? indicates that RNA from SARS-CoV-2 was detected and the patient is infected. As required or requested by public health authorities, positive specimens may be sent for additional testing. Positive and negative predictive values for this test are highly dependent on disease prevalence. A result of ? Invalid? indicates that neither the viral RNA targets nor the internal control target was detected. An invalid result suggests the presence of inhibitors. Recollection and re-testing is recommended in the case of an invalid result. CDC COVID-19 criteria for testing on human specimens and clinical management guidance information are available at the CDC Coronavirus Disease 2019 (COVID-19) webpage under ? Information for Healthcare Professionals? (https://www.cdc.gov/coronavirus/2019-ncov/hcp/index.html) Additional information about this and other EUA tests can be found in provider and patient fact sheets at the following FDA website: https://www.fda.gov/medical-devices/tszvsqitnop-cnonhcn-1788-syxfe-54-shivrbvjm- use-a yctvvpzihfgsh-gyzinve-bkemklw/ihmuw-nrlruzbuyow-gcwq SARS-CoV-2 RNA Source [employer]IVER Swab [facility] Nasopharyngeal swab (specimen) Other / Unknown 03/24/2020 8:00 AM EST 03/24/2020 10:45 PM EST Narrative Resulting Agency Comment Spec In Lab Cynthia Ravi Yara VP CARE MANAGEMENT MOLECULAR ORDERABLE S [facility] [place] [address] documented in this encounter Visit Diagnoses Not on filedocumented in this encounter Care Teams Dolly Driver Relationship Specialty Start Date End Date Abbey Romero MD [facility] [place] [address] PCP - General 03/28/10 documented as of this encounter
--- OUTSIDE RECORDS SUMMARY | 2024-03-19 13:33 | XMS_ITS | Encounter Summary ---
Author Organization [facility] Address [address] [place] [address] Care Team Providers Care Spearer Name Role Phone Unknown, Provider Primary Care Provider Addy ilmartin Encounter Details Date Type Department Care Team (Late st Contact Info) Description 04/09/2022 Lab Requisition [facility] Pathology & Laboratory Medicine - [facility] [address] [place] [address] Outr Resulting Lab, Provider Social History Tobacco [...] Procedure Name Priority Date/Time Associated Diagnosis Comments HIV 1/2 ANTIGEN AND ANTIBODY, 4TH GENERATION Routine 04/09/2022 10:55 EST documented in this encounter Results * HIV 1/2 ANTIGEN AND ANTIBODY, 4TH GENERATION (04/09/2022 10:55 EST) HIV 1 and 2 Antibody/p24 Antigen, 4th Generation Negative Negative 04/10/2022 9:34 EST [facility] Comment:If acute HIV-1 infec tion is suspected in a high risk patient, submit plasma specimen for HIV-1 RNA quantitation test. Blood VENOUS BLOOD / Unknown 04/09/2022 10:55 EST 04/09/2022 16:40 EST Narrative [facility] - 04/10/2022 9:34 EST Fourth Generation assay performed on the Siemens Deedaur XPT. us Provider Outr Resulting Lab IMMUNOLOGY AND SEROL OGY ORDERABLES Final Result [facility] [address] [place] [address] documented in this encounter Visit Diagnoses Not on filedocumented in this encounter Care Teams Spearer Relationship Specialty Start Date End Date Unknown, Provider, PCP - General 01/05/20 documented as of this encounter
--- OUTSIDE RECORDS SUMMARY | 2024-03-19 13:33 | XMS_ITS | Encounter Summary ---
Author Organization [facility] Address [address] [place] [id number] Care Team Providers Care Workday Director Name Role Phone Unknown, Provider Primary Care Provider Unava ilable Encounter Details Date Type Department Care Team (Late st Contact Info) Description 03/13/2022 Lab Requisition [facility] Pathology & Laboratory Medicine - [address] [address] Outr Resulting Lab, Provider Social History Tobacco [...] Name Priority Date/Time Associated Diagnosis Comments HEPATITIS B SURFACE ANTIBODY Routine 03/13/2022 10:55 EST documented in this encounter Results * HEPATITIS B SURFACE ANTIBODY (03/13/2022 10:55 EST) Hep B Surface Ab, Quantitative <3.1 See Note mIU/mL 03/14/2022 8:[address] [facility] Comment: Reference Range for Hep B Surface Ab, Quant: Positive: >= 10.0 mIU/mL Negative: ??< 10.0 mIU/mL Patient is presumed to not be immune to infection with Hepatitis B Virus. Hep B Surface Ab, Qualitative Negative See Note 03/14/2022 8:[address] [facility] Comment: Reference Range for Hep B Surface Ab, Qual: Unvaccinated: ??Negative Vaccinated: ??Positive Blood VENOUS BLOOD / Unknown 03/13/2022 10:55 EST 03/13/2022 17:13 EST us Provider Outr Resulting Lab CHEMISTRY & BLOOD GA S ORDERABLES Final Result Performing Organization Address City/State/[facility] Co de Phone Number [facility] [address] [place] [address] documented in this encounter Visit Diagnoses Not on filedocumented in this encounter Care Teams Workday Director Relationship Specialty Start Date End Date Unknown, Provider, PCP - General 01/05/20 documented as of this encounter
--- OUTSIDE RECORDS SUMMARY | 2024-03-19 13:33 | XMS_ITS | Referral Summary ---
Author Organization [facility] Address [address] [place] [address] Care Team Providers Care Assisted Living Housekeeper Name Role Phone Unknown, Provider Primary Care [...] Orientation Not on file Plan of Treatment Not on file Procedures Procedure Name Priority Date/Time Associated Diagnosis Comments HEPATITIS C AB W REFLEX TO HCV RNA BY PCR Today 04/09/2022 10:55 EST from Last 3 Months or Most Recently Relevant to Health Maintenance Results * HEPATITIS C AB W REFLEX TO HCV RNA BY PCR (04/09/2022 10:55 EST) Hep C Antibody Negative Negative 04/10/2022 9:53 EST [facility] Blood VENOUS BLOOD / Unknown 04/09/2022 10:55 EST 04/09/2022 16:41 EST us Provider Outr Resulting Lab CHEMISTRY & BLOOD GA S ORDERABLES Final Result [facility] [address] [place] [address] from Last 3 Months or Most Recently Relevant to Health Maintenance 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
== END 2024-03-19 13:26 | disposition home or self-care (01) ==
LOC: LBO 13:31
PROVIDERS: PCP Pediatrics; Visit Provider Advanced Practice Midwife
DX: O20.9 Hemorrhage in early pregnancy, unspecified (principal); Z3A.01 Less than 8 weeks gestation of pregnancy
CPT/HCPCS: 36415; 84702

== ENCOUNTER 2024-04-05 13:13 | Emergency (ER) | payer OTHER, SELFPAY ==
[2024-04-05 13:14] VITALS: BP 108/67; PULSE 111; RESP 16; TEMP 36.7; O2SAT 98
--- NOTE | 2024-04-05 13:30 | DI.RAD_ITS ---
Exam(s) XR CHEST 2V PA LATERAL EXAM: XR CHEST 2V PA LATERAL CLINICAL HISTORY: Cough, wheezing TECHNIQUE: 2D digital imaging was performed of the chest. Two images were obtained. PA and lateral views were obtained. COMPARISON: CR XR PORTABLE CHEST AP from 01/22/2022 FINDINGS: MEDIASTINUM: Normal. HEART: Normal. PULMONARY VASCULATURE: Normal. LUNGS: Clear. PLEURAL SPACE: No pleural effusion or pneumothorax. BONE:Within normal limits for the patient's age. OTHER FINDINGS:Normal. IMPRESSION: No acute pulmonary findings. DATA REPOSITORY: RADIATION DOSE DELIVERED:
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
[2024-04-05] MEDS: Albuterol HFA 8 GM 60 PUFF INH IH (13:40)
[2024-04-05] MEDS: predniSONE 20 MG TAB PO (14:34)
[2024-04-05 14:38] VITALS: BP 110/70; PULSE 109; RESP 16; TEMP 36.7; O2SAT 97
== END 2024-04-05 14:21 | disposition home or self-care (01) ==
PROVIDERS: Emergency Provider Registered Nurse Emergency; PCP Pediatrics
DX: J40 Bronchitis, not specified as acute or chronic (principal); R05.1 Acute cough; Z87.01 Personal history of pneumonia (recurrent); R06.2 Wheezing
CPT/HCPCS: 81025; 99283; 71046; J7512

== ENCOUNTER 2024-04-19 10:32 | Emergency (ER) | payer OTHER, SELFPAY ==
[2024-04-19 10:33] VITALS: BP 116/81; PULSE 75; RESP 16; TEMP 36.3; O2SAT 99
[2024-04-19 10:41] VITALS: BP 116/81; PULSE 75; RESP 16; TEMP 36.3; O2SAT 99
[2024-04-19 10:42] VITALS: BP 116/81; PULSE 75; RESP 16; TEMP 36.3; O2SAT 99
[2024-04-19 10:59] LABS: Bilirubin Negative (Negative); Blood Large (Negative); Glucose Negative (Negative); Ketones Negative (Negative); Leukocyte Esterase Negative (Negative); Nitrite Negative (Negative); Specific Gravity 1.025 (1.005-1.025); Urobilinogen 0.2 mg/dL (Up to 0.2)
[2024-04-19 11:00] LABS: Clarity Sl Cloudy (Clear)
[2024-04-19 11:05] LABS: Bacteria Negative HPF (Negative); C & S Indicated? No; Casts Negative LPF (Negative); Crystals Negative HPF (Negative); Epithelial Cells Few HPF (Negative); Mucus Negative (Negative); RBC >50 HPF (0-2); WBC 0-2 HPF (0-5)
[2024-04-19 11:50] VITALS: RESP 18; O2SAT 97
[2024-04-19 11:57] LABS: Abs Immature Grans 0.02 10^3/uL (0.0-0.06); Absolute Basophil Count 0.06 10^3/uL (0.0-0.2); Absolute Eosinophil Count 0.39 10^3/uL (0.0-0.7); Absolute Lymphocyte Count 2.08 10^3/uL (1.2-3.4); Absolute Neutrophil Count 3.19 10^3/uL (1.2-6.7); Eosinophils % 6.4 %; HCT 41.3 % (36.0-46.0); HGB 13.9 g/dL (11.2-15.7); Immature Grans % 0.3 %; Lymphocytes % 33.9 %; MCH 31.7 pg (27.0-33.0); MCHC 33.7 % (32.0-36.0); MCV 94 fL (80-95); MPV 10.5 fL (8.0-11.0); Monocytes % 6.5 %; Neutrophils % 51.9 %; Platelet Count 215 10^3/uL (130-400); RBC 4.39 10^6/uL (3.93-5.22); RDW 12.4 % (11.7-14.6); RDW-SD 42.8 fL; WBC 6.14 10^3/uL (4.4-10.8)
[2024-04-19 12:18] LABS: ALT 12 U/L (14-59); AST 14 U/L (15-37); Albumin 3.6 g/dL (3.4-5.0); Alkaline Phosphatase 93 U/L (46-116); Anion Gap 8.6 mmol/L (3-11); BUN 9 mg/dL (7-18); Bilirubin, Total 0.63 mg/dL (0.2-1.0); CO2 28.4 mmol/L (21.0-32.0); CREATININE 0.7 mg/dL (0.55-1.02); Calcium 8.7 mg/dL (8.5-10.1); Chloride 107 mmol/L (98-107); Glucose 83 mg/dL (74-106); Potassium 3.5 mmol/L (3.5-5.1); Sodium 144 mmol/L (136-145); Total Protein 6.9 g/dL (6.4-8.2)
[2024-04-19 12:19] LABS: HCG Quant, Pregnancy < 1 mIU/mL (1-3)
[2024-04-19 12:53] VITALS: BP 115/69; PULSE 73; RESP 18; O2SAT 100
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
[2024-04-21 11:39] LABS: Chlamydia Result Negative (Negative); GC Result Negative (Negative)
== END 2024-04-19 12:55 | disposition home or self-care (01) ==
PROVIDERS: Emergency Provider Physician Assistant; PCP Pediatrics
DX: F17.290 Nicotine dependence, other tobacco product, uncomplicated; R10.2 Pelvic and perineal pain; M54.50 Low back pain, unspecified; N76.0 Acute vaginitis
CPT/HCPCS: 80053; 81025; 87491; 87591; 99283; 81003; 81015; 84702; 85025; 87480; 87510; 87660

== ENCOUNTER 2024-07-08 15:06 | Outpatient (REF) | payer OTHER, SELFPAY ==
--- NOTE | 2024-07-08 14:30 | PAPFT_PTH ---
PATIENT: Fiorella España LOC: [facility] U#:[id number] AGE/SX: 19/F ROOM: RE07/08/[address]: Verona Monahan NP : 2005 BED: DIS: 07/08/2024 SPEC #: [id number] RECD: 07/08/24 18:23 STATUS: DARIUS REQuin #: [id number] POONAM: 07/08/24 14:[address]: Verona Monahan NP DEPT: [facility] Cytology RECD BY: Anupama Munoz ENTERED: 07/08/24 18:23 SP TYPE: PAPFT OTHR DR: Rob Mora MD Tissues: 1 - CX/ENDOCX FOR PAP SMEARS Procedures: PAP THIN PREP/UVM Screening Comments: [id number]
== END 2024-07-08 15:07 | disposition home or self-care (01) ==
LOC: LBN 15:06
PROVIDERS: PCP Pediatrics; Visit Provider Nurse Practitioner Women's Health
DX: N76.0 Acute vaginitis (principal); B96.89 Other specified bacterial agents as the cause of diseases classified elsewhere; Z12.4 Encounter for screening for malignant neoplasm of cervix
CPT/HCPCS: 88142

== ENCOUNTER 2024-07-16 09:25 | Emergency (ER) | payer OTHER, SELFPAY ==
[2024-07-16 09:32] VITALS: BP 130/94; PULSE 107; RESP 14; TEMP 36.8; O2SAT 99
[2024-07-16] MEDS: Ondansetron 4 MG/2 ML VIAL IVP (10:12)
[2024-07-16] MEDS: Ketorolac 15 MG/ML VIAL IVP (10:13)
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
[2024-07-16 10:24] LABS: Abs Immature Grans 0.03 10^3/uL (0.0-0.06); Absolute Basophil Count 0.04 10^3/uL (0.0-0.2); Absolute Eosinophil Count 0.34 10^3/uL (0.0-0.7); Absolute Lymphocyte Count 1.23 10^3/uL (1.2-3.4); Absolute Monocyte Count 0.42 10^3/uL (0.1-0.8); Absolute Neutrophil Count 5.64 10^3/uL (1.2-6.7); Basophils % 0.5 %; Eosinophils % 4.4 %; HCT 43.1 % (36.0-46.0); HGB 14.7 g/dL (11.2-15.7); Immature Grans % 0.4 %; MCH 31.8 pg (27.0-33.0); MCHC 34.1 % (32.0-36.0); MCV 93 fL (80-95); MPV 10.7 fL (8.0-11.0); Monocytes % 5.5 %; Neutrophils % 73.2 %; Platelet Count 202 10^3/uL (130-400); RBC 4.62 10^6/uL (3.93-5.22); RDW 12.3 % (11.7-14.6); RDW-SD 42.7 fL
[2024-07-16 10:39] LABS: Bilirubin Negative (Negative); Blood Negative (Negative); Clarity Clear (Clear); Glucose Negative (Negative); Ketones Negative (Negative); Leukocyte Esterase Negative (Negative); Nitrite Negative (Negative); Urobilinogen 0.2 mg/dL (Up to 0.2)
[2024-07-16 10:39] LABS: ALT 17 U/L (14-59); AST 12 U/L (15-37); Albumin 3.8 g/dL (3.4-5.0); Alkaline Phosphatase 65 U/L (46-116); Anion Gap 9.7 mmol/L (3-11); BUN 8 mg/dL (7-18); Bilirubin, Total 0.5 mg/dL (0.2-1.0); CO2 25.3 mmol/L (21.0-32.0); CREATININE 0.6 mg/dL (0.55-1.02); Calcium 8.7 mg/dL (8.5-10.1); Chloride 106 mmol/L (98-107); Estimated GFR 130.88 (mL/min/1.73m2); Glucose 75 mg/dL (74-106); Lipase 26 U/L (<78); Magnesium 1.9 mg/dL (1.8-2.4); Potassium 3.5 mmol/L (3.5-5.1); Sodium 141 mmol/L (136-145)
[2024-07-16 12:33] VITALS: BP 104/66; PULSE 85; RESP 16; TEMP 37.2; O2SAT 99
[2024-07-20 12:32] LABS: Chlamydia Result Invalid (Negative); GC Result Invalid (Negative)
== END 2024-07-16 13:14 | disposition home or self-care (01) ==
PROVIDERS: Emergency Provider Emergency Medicine; PCP Pediatrics
DX: O23.591 Infection of other part of genital tract in pregnancy, first trimester (principal); B96.89 Other specified bacterial agents as the cause of diseases classified elsewhere; O98.811 Other maternal infectious and parasitic diseases complicating pregnancy, first trimester; O99.331 Smoking (tobacco) complicating pregnancy, first trimester; F17.290 Nicotine dependence, other tobacco product, uncomplicated; Z3A.01 Less than 8 weeks gestation of pregnancy
CPT/HCPCS: 76815; 80053; 81025; 83690; 87491; 87591; 96365; 96375; 99284; 81003; 83735; 84702; 85025; 87480; 87510; 87660; J0696; J1885; J2405

== ENCOUNTER 2024-08-03 01:45 | Outpatient (CLI) | payer OTHER, SELFPAY ==
[2024-08-03 14:46] LABS: Panorama Kit Sent via Fed Ex
[2024-08-03 14:58] LABS: Abs Immature Grans 0.02 10^3/uL (0.0-0.06); Absolute Basophil Count 0.05 10^3/uL (0.0-0.2); Absolute Eosinophil Count 0.56 10^3/uL (0.0-0.7); Absolute Lymphocyte Count 2.17 10^3/uL (1.2-3.4); Absolute Neutrophil Count 6.06 10^3/uL (1.2-6.7); Basophils % 0.5 %; HCT 39.8 % (36.0-46.0); HGB 13.9 g/dL (11.2-15.7); Immature Grans % 0.2 %; Lymphocytes % 23.4 %; MCH 32.4 pg (27.0-33.0); MCHC 34.9 % (32.0-36.0); MCV 93 fL (80-95); MPV 10.8 fL (8.0-11.0); Monocytes % 4.3 %; Neutrophils % 65.6 %; Platelet Count 226 10^3/uL (130-400); RBC 4.29 10^6/uL (3.93-5.22); RDW-SD 40.9 fL; WBC 9.26 10^3/uL (4.4-10.8)
[2024-08-04 09:18] LABS: Hepatitis B Surface Ag Negative (Negative)
[2024-08-04 10:10] LABS: HIV-1/2 Ag & Ab Screen Negative (Negative)
[2024-08-04 10:46] LABS: Rubella IgG Ab (UVM) Positive (See Note)
[2024-08-04 10:49] LABS: Varicella IgG Antibody Positive (See Note)
[2024-08-04 11:13] LABS: Hepatitis C Ab w Rflx HCV PCR Negative (Negative)
[2024-08-05 19:02] LABS: Syphilis IgG w/Reflex Nonreactive (Nonreactive)
== END 2024-08-03 01:46 | disposition home or self-care (01) ==
LOC: LBO 01:45
PROVIDERS: PCP Pediatrics; Visit Provider Advanced Practice Midwife
DX: Z34.91 Encounter for supervision of normal pregnancy, unspecified, first trimester
CPT/HCPCS: 36415; 86787; 86803; 86850; 86900; 86901; 87340; 87389; 85025; 86762; 86780

== ENCOUNTER 2024-08-03 14:31 | Outpatient (REF) | payer OTHER, SELFPAY ==
[2024-08-03 17:06] LABS: *AMPHETAMINES SCREEN URINE Negative (Negative); *BARBITURATES SCREEN URINE Negative (Negative); *BENZODIAZEPINES SCREEN URINE Negative (Negative); Cannabinoids THC Negative (Negative); Cocaine Screen,Urine Negative (Negative); METHADONE URINE SCREEN Negative (Negative); OPIATES URINE SCREEN Negative (Negative)
[2024-08-03 17:07] LABS: Tricyclic Antidepressants Negative (Negative)
[2024-08-04 11:50] LABS: Fentanyl Scr w/Rfx Confirm Negative ng/mL (<1)
[2024-08-04 12:01] LABS: Chlamydia Result Negative (Negative); GC Result Negative (Negative)
[2024-08-07 07:55] LABS: Buprenorphine Negative ng/mL (Cutoff: 5.0); Norbuprenorphine Negative ng/mL (Cutoff: 2.5)
== END 2024-08-03 14:32 | disposition home or self-care (01) ==
LOC: LBN 14:31
PROVIDERS: PCP Pediatrics; Visit Provider Advanced Practice Midwife
DX: Z34.91 Encounter for supervision of normal pregnancy, unspecified, first trimester (principal)
CPT/HCPCS: 80307; 80348; 87491; 87591; 87086

== ENCOUNTER 2024-08-26 16:19 | Outpatient (REF) | payer OTHER, SELFPAY | END 2024-08-26 16:20 | disposition home or self-care (01) | LOC: LBN 16:19 | PROVIDERS: PCP Pediatrics; Visit Provider Advanced Practice Midwife | DX: R10.9 Unspecified abdominal pain (principal); Z34.92 Encounter for supervision of normal pregnancy, unspecified, second trimester; Z3A.15 15 weeks gestation of pregnancy | CPT/HCPCS: 87480; 87510; 87660 ==

== ENCOUNTER 2024-09-14 16:15 | Emergency (ER) | payer OTHER, SELFPAY ==
[2024-09-14 16:17] VITALS: BP 120/74; PULSE 120; RESP 16; TEMP 36.3; O2SAT 98
[2024-09-14 16:20] VITALS: BP 120/74; PULSE 120; RESP 16; TEMP 36.3; O2SAT 98
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
[2024-09-14 16:52] VITALS: PULSE 94; O2SAT 97
[2024-09-14 16:53] VITALS: RESP 5
[2024-09-14] MEDS: Albuterol/Ipratropium 3 ML UPD VIAL UPD (16:53)
[2024-09-14] MEDS: Budesonide/Formoterol 160/4.5 6 GM 60 PUFF INH IH (16:53)
[2024-09-14 17:20] LABS: COVID-19 PCR Negative (Negative); Influenza A PCR Negative (Negative); Influenza B PCR Negative (Negative); RSV PCR Negative (Negative)
[2024-09-14 17:24] LABS: Source Nasopharynx
[2024-09-14] MEDS: Albuterol HFA 8 GM 60 PUFF INH IH (18:08)
== END 2024-09-14 18:18 | disposition home or self-care (01) ==
PROVIDERS: Emergency Provider Emergency Medicine; PCP Pediatrics
DX: R06.2 Wheezing (principal); Z3A.20 20 weeks gestation of pregnancy; F17.290 Nicotine dependence, other tobacco product, uncomplicated
CPT/HCPCS: 99283 ×2; 94640; 87637; J7620

== ENCOUNTER 2024-09-22 06:40 | Emergency (ER) | payer OTHER, SELFPAY ==
[2024-09-22 06:43] VITALS: BP 116/70; PULSE 108; RESP 16; TEMP 36.9; O2SAT 99
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
== END 2024-09-22 07:07 | disposition home or self-care (01) ==
LOC: ER 06:59
PROVIDERS: Emergency Provider Student in an Organized Health Care Education/Training Program; PCP Pediatrics
DX: O99.512 Diseases of the respiratory system complicating pregnancy, second trimester (principal); J01.10 Acute frontal sinusitis, unspecified; O99.332 Smoking (tobacco) complicating pregnancy, second trimester; F17.290 Nicotine dependence, other tobacco product, uncomplicated; Z3A.19 19 weeks gestation of pregnancy
CPT/HCPCS: 99283

== ENCOUNTER 2024-10-15 15:22 | Outpatient (CLI) | payer OTHER, SELFPAY ==
[2024-10-15 16:00] VITALS: BP 123/80; PULSE 110; RESP 20; TEMP 36.4
[2024-10-15 17:17] LABS: Bilirubin Negative (Negative); Blood Negative (Negative); Clarity Clear (Clear); Glucose Negative (Negative); Ketones Negative (Negative); Leukocyte Esterase Negative (Negative); Nitrite Negative (Negative); Specific Gravity 1.015 (1.005-1.025); Urobilinogen 0.2 mg/dL (Up to 0.2); pH 7.5 (5-8)
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
[2024-10-15 17:38] LABS: ROM Plus Negative
== END 2024-10-15 17:42 ==
LOC: BCD 15:23 → OBS 17:14
PROVIDERS: PCP Pediatrics; Visit Provider Obstetrics & Gynecology
DX: Z03.71 Encounter for suspected problem with amniotic cavity and membrane ruled out (principal)
CPT/HCPCS: 84112; 81003; G0378

== ENCOUNTER 2024-10-23 15:04 | Outpatient (REF) | payer OTHER, SELFPAY | END 2024-10-23 15:05 | disposition home or self-care (01) | LOC: LBN 15:04 | PROVIDERS: PCP Pediatrics; Visit Provider Obstetrics & Gynecology | DX: N89.8 Other specified noninflammatory disorders of vagina (principal) | CPT/HCPCS: 87480; 87510; 87660 ==

== ENCOUNTER 2024-11-16 03:08 | Outpatient (CLI) | payer OTHER, SELFPAY ==
[2024-11-16 10:28] LABS: HCT 39.3 % (36.0-46.0); HGB 13.7 g/dL (11.2-15.7); MCH 33.3 pg (27.0-33.0); MCHC 34.9 % (32.0-36.0); MCV 96 fL (80-95); MPV 10.5 fL (8.0-11.0); Platelet Count 229 10^3/uL (130-400); RBC 4.11 10^6/uL (3.93-5.22); RDW 12.0 % (11.7-14.6); RDW-SD 42.0 fL; WBC 10.68 10^3/uL (4.4-10.8)
[2024-11-16 10:53] LABS: Glucose,1 Hr (Glucola) 115 mg/dL (80-140)
== END 2024-11-16 03:09 | disposition home or self-care (01) ==
LOC: LBO 03:08
PROVIDERS: PCP Pediatrics; Visit Provider Obstetrics & Gynecology
DX: Z34.92 Encounter for supervision of normal pregnancy, unspecified, second trimester; Z3A.26 26 weeks gestation of pregnancy
CPT/HCPCS: 36415; 82950; 85027

== ENCOUNTER 2025-01-12 11:53 | Outpatient (REF) | payer OTHER, SELFPAY | END 2025-01-12 11:54 | disposition home or self-care (01) | LOC: LBN 11:53 | PROVIDERS: Visit Provider Obstetrics & Gynecology | DX: B37.31 Acute candidiasis of vulva and vagina (principal) | CPT/HCPCS: 87480; 87510; 87660 ==

== ENCOUNTER 2025-01-22 13:24 | Outpatient (CLI) | payer OTHER, SELFPAY ==
[2025-01-22 14:15] VITALS: BP 121/73; PULSE 98
[2025-01-22 14:28] VITALS: BP 121/73; PULSE 98; TEMP 36.6
--- NOTE | 2025-01-22 14:58 | NUR.NOTE ---
Nursing Note: Dr Zamorano present on unit,going to see pt
[2025-01-22 16:19] LABS: Glucose Negative (Negative)
--- NOTE | 2025-01-22 16:20 | NUR.NOTE ---
Nursing Note:Dr Zamorano went into room to see strip and speak with pt. Order given to discharge pt to home, follow up with another NST tomorrow at 11:00.
[2025-01-23 09:20] VITALS: BP 109/62; PULSE 59
[2025-01-23 10:54] VITALS: BP 133/71; PULSE 123
--- NOTE | 2025-01-23 14:47 | W.OBNST ---
Date of service: 01/22/25 Time of Service: 17:00 NST Evaluation Reason for NST Reasons for Nonstress Test: DECREASED MOVEMENT and LABOR Gestational Age Gestational Age in Weeks and Days: 36 Weeks and 2Days Test and Monitor Explained Test/Monitor Explained: Test Explained Vital Signs Blood Pressure: 121/73 Pulse: 98 Temperature: 98 F Weight: 168 lb Urine Results Urine Protein: Negative Urine Ketones: Positive Urine Glucose: Negative Urine Blood: Negative NST Information Date on Monitor: 01/22/25 Time on Monitor: 14:08 NST Interventions: PO Hydration and Reposition Patient NST Evaluation Patient States Movement: Absent FHR Baseline: 125 Variability: Moderate 6-25 bpm Accelerations: 15x15 Decelerations: Variable Note Ultrasound Done: N/A. NST Note Note: Patient presents with complaints of contractions and pelvic discomfort. FHT initially exhibited a few, isolated variables; though remained overall reassuring. SVE cl/th/high. She was monitored for an extended period of time and continued tracing was reactive, reassuring, and without any further evidence of decelerations. She will return, tomorrow, for follow up NST. NST Reviewed and Verified by: Cecilia Zamorano
[2025-01-23 14:49] VITALS: BP 121/73; PULSE 98; TEMP 36.6
== END 2025-01-22 16:22 ==
LOC: BCD 13:27 → OBS 13:32
PROVIDERS: Visit Provider Obstetrics & Gynecology
DX: O36.8131 Decreased fetal movements, third trimester, fetus 1 (principal); Z3A.36 36 weeks gestation of pregnancy
CPT/HCPCS: 59025; 81003

== ENCOUNTER 2025-01-23 08:03 | Outpatient (CLI) | payer OTHER, SELFPAY ==
[2025-01-23 11:07] VITALS: BP 133/71; PULSE 98; TEMP 36.8
--- NOTE | 2025-01-23 15:14 | W.OBNST ---
Date of service: 01/23/25 Time of Service: 15:14 NST Evaluation Reason for NST Reasons for Nonstress Test: OTHER, SEE COMMENT Reason for NST Other: cramping Gestational Age Gestational Age in Weeks and Days: 36 Weeks and 2Days Test and Monitor Explained Test/Monitor Explained: Test Explained, Monitor Explained and Patient Verbalized Understanding Vital Signs Blood Pressure: 133/71 Pulse: 98 Temperature: 98.2 F NST Information Date on Monitor: 01/23/25 Time on Monitor: 10:55 Date off Monitor: 01/23/25 Time off Monitor: 11:48 Total Time on Monitor: 53 NST Interventions: PO Hydration Contraction Frequency: none NST Evaluation Patient States Movement: Present FHR Baseline: 140 Variability: Moderate 6-25 bpm Accelerations: 15x15 Decelerations: None NST Results: Reactive Note Ultrasound Done: N/A. NST Note Note: Patient returns, today, for f/u NST. She reports feeling improved from yesterday. She reports good movement and she denies vaginal bleeding or leakage. NST is reactive and reassuring without decelerations. F/u as scheduled. NST Reviewed and Verified by: Cecilia Zamorano
[2025-01-23 15:16] VITALS: BP 133/71; PULSE 98; TEMP 36.8
== END 2025-01-23 11:55 ==
LOC: BCD 08:03 → OBS 11:00 → BCD 11:01 → OBS 11:04
PROVIDERS: Visit Provider Obstetrics & Gynecology
DX: Z3A.36 36 weeks gestation of pregnancy (principal); R25.2 Cramp and spasm; O99.891 Other specified diseases and conditions complicating pregnancy
CPT/HCPCS: 59025

== ENCOUNTER 2025-01-27 03:26 | Outpatient (CLI) | payer OTHER, SELFPAY ==
--- NOTE | 2025-01-27 06:15 | DI.US_ITS ---
Exam(s) US OB KYUNG WEIGHT EXAM: US OB KYUNG WEIGHT CLINICAL HISTORY: Patient has h/o FGR in prior ,h/o iugr,[id number]. TECHNIQUE: Transabdominal obstetrical ultrasound performed. COMPARISON: US US OB 2-3 TRIMESTER from 10/07/2024 US POCUS EXAM from 01/12/2025 FINDINGS: Number of fetuses: 1 position: CEPHALIC Placental location: There is a grade 1 anterior placenta. No evidence of previa. BIOMETRIC DATA: BPD: 8.83cm, 35weeks 5days HC: 32.72cm, 37weeks 1day AC: 30.61cm, 34weeks 4days. Less than the 10th percentile. FL: 6.78cm, 34weeks 6days. Less than the 10th percentile. EFW: 2,573.15g, 5lb 10.99oz, 13.3% Composite Age: 35weeks 4days NALLELY: 02/27/2025 Heart Rate: 136bpm Amniotic fluid index: 8.61cm. The largest pocket measures 3.2 cm. IMPRESSION: 1. Single live intrauterine gestation as above. 2. Estimated weight is 2573gms. This is the 13th percentile. 3. Amniotic fluid index is 8.6 cm. The largest pocket measures 3.2 cm. DATA REPOSITORY:
== END 2025-01-27 03:46 ==
LOC: DI 03:27
PROVIDERS: Visit Provider Obstetrics & Gynecology
DX: O09.293 Supervision of pregnancy with other poor reproductive or obstetric history, third trimester (principal); Z3A.37 37 weeks gestation of pregnancy
CPT/HCPCS: 76816

== ENCOUNTER 2025-01-27 18:01 | Outpatient (REF) | payer OTHER, SELFPAY | END 2025-01-27 18:02 | disposition home or self-care (01) | LOC: LBN 18:01 | PROVIDERS: Visit Provider Obstetrics & Gynecology | DX: Z34.93 Encounter for supervision of normal pregnancy, unspecified, third trimester (principal) | CPT/HCPCS: 87081 ==

== ENCOUNTER 2025-01-28 02:25 | Outpatient (CLI) | payer OTHER, SELFPAY ==
--- NOTE | 2025-01-28 07:00 | DI.US_ITS ---
Exam(s) US OB KYUNG UMBILICAL ARTERY EXAM: US OB KYUNG UMBILICAL ARTERY CLINICAL HISTORY: R05.9 AFFECTED SLOW INTRAUTERINE GROWTH. COMPARISON: US US OB KYUNG WEIGHT from 01/27/2025 TECHNIQUE: Transabdominal obstetrical ultrasound performed. FINDINGS: Sonographic images demonstrate a single intrauterine gestation. Heart Rate: 151bpm Number of fetuses: 1 position: CEPHALIC Placental location: ANTERIOR No evidence of previa. Amniotic fluid index: 10.2cm Amount of fluid is within normal limits. Umbilical artery Doppler measurements: PI, RI and SD ratios are all within the normal range. IMPRESSION: Umbilical artery Doppler measurements are within the normal range. KYUNG is 10.2 DATA REPOSITORY:
== END 2025-01-28 02:45 ==
PROVIDERS: Visit Provider Obstetrics & Gynecology
DX: O26.843 Uterine size-date discrepancy, third trimester (principal); Z3A.37 37 weeks gestation of pregnancy
CPT/HCPCS: 76816; 76820

== ENCOUNTER 2025-01-29 07:11 | Outpatient (CLI) | payer OTHER, SELFPAY ==
[2025-01-29 10:35] VITALS: BP 115/67; PULSE 75; TEMP 36.5
[2025-01-29 10:40] VITALS: BP 115/67; PULSE 75
--- NOTE | 2025-01-29 11:25 | W.OBNST ---
Date of service: 01/29/25 Time of Service: 11:25 NST Evaluation Reason for NST Reasons for Nonstress Test: INTRA-UTERINE GROWTH RES Gestational Age Gestational Age in Weeks and Days: 37 Weeks and 1Days Test and Monitor Explained Test/Monitor Explained: Test Explained, Monitor Explained and Patient Verbalized Understanding Vital Signs Blood Pressure: 115/67 Pulse: 75 Temperature: 97.7 F Weight: 170 lb Urine Results Urine Protein: Negative Urine Ketones: Negative Urine Glucose: Negative Urine Blood: Negative NST Information Date on Monitor: 01/29/25 Time on Monitor: 10:36 Date off Monitor: 01/29/25 Time off Monitor: 10:59 Total Time on Monitor: 23 NST Interventions: None Contraction Frequency: 0 NST Evaluation Patient States Movement: Present FHR Baseline: 120 Variability: Moderate 6-25 bpm Accelerations: 15x15 Decelerations: None NST Results: Reactive Note Ultrasound Done: N/A. NST Note Note: Category 1, reactive NST. Kick counts discussed. Follow-up for NST next week. Labor induction at 38 weeks. All questions answered NST Reviewed and Verified by: Jacy Trejo
[2025-01-29 11:26] VITALS: BP 115/67; PULSE 75; TEMP 36.5
== END 2025-01-29 11:16 ==
LOC: BCD 07:11 → OBS 10:32
PROVIDERS: Visit Provider Obstetrics & Gynecology
DX: Z3A.37 37 weeks gestation of pregnancy (principal); O36.5931 Maternal care for other known or suspected poor fetal growth, third trimester, fetus 1
CPT/HCPCS: 59025

== ENCOUNTER 2025-02-02 08:18 | Outpatient (CLI) | payer OTHER, SELFPAY ==
[2025-02-02 10:47] VITALS: BP 114/68; PULSE 92
[2025-02-02 11:40] VITALS: BP 114/68; PULSE 92; TEMP 36.8
--- NOTE | 2025-02-02 12:03 | W.OBNST ---
Date of service: 02/02/25 Time of Service: 12:03 NST Evaluation Reason for NST Reasons for Nonstress Test: INTRA-UTERINE GROWTH RES Gestational Age Gestational Age in Weeks and Days: 37 Weeks and 5Days Test and Monitor Explained Test/Monitor Explained: Test Explained, Monitor Explained and Patient Verbalized Understanding Vital Signs Blood Pressure: 114/68 Pulse: 92 Temperature: 98.2 F Weight: 168 lb Urine Results Urine Protein: Negative Urine Ketones: Positive Urine Glucose: Negative Urine Blood: Negative NST Information Date on Monitor: 02/02/25 Time on Monitor: 10:46 Date off Monitor: 02/02/25 Time off Monitor: 11:28 Total Time on Monitor: 42 NST Interventions: PO Hydration, Reposition Patient and Notify Provider Contraction Frequency: 0 NST Evaluation Patient States Movement: Present FHR Baseline: 130 Variability: Moderate 6-25 bpm Accelerations: 15x15 Decelerations: None NST Results: Reactive Note Ultrasound Done: N/A. NST Note Note: Category 1 Reactive NST. Cervical exam, 2 to 3 cm, 50%, soft, -2 station. Scheduled for labor induction at 38 weeks of 02/04/2025 NST Reviewed and Verified by: Jacy Trejo
[2025-02-02 12:04] VITALS: BP 114/68; PULSE 92; TEMP 36.8
== END 2025-02-02 11:45 ==
LOC: BCD 08:18 → OBS 10:43
PROVIDERS: Visit Provider Obstetrics & Gynecology
DX: O36.5931 Maternal care for other known or suspected poor fetal growth, third trimester, fetus 1 (principal); Z3A.37 37 weeks gestation of pregnancy
CPT/HCPCS: 59025

== ENCOUNTER 2025-02-03 12:00 | Inpatient (IN) | payer OTHER, SELFPAY ==
[2025-02-03] VITALS (17 sets, daily range): BP systolic 110–137; BP diastolic 59–95; PULSE 67–102; RESP 16; TEMP 36.6–36.9; O2SAT 96–98; BMI 31.7
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
[2025-02-03 12:42] LABS: Abs Immature Grans 0.03 10^3/uL (0.0-0.06); HCT 39.2 % (36.0-46.0); HGB 13.4 g/dL (11.2-15.7); Immature Grans % 0.3 %; MCH 31.5 pg (27.0-33.0); MCHC 34.2 % (32.0-36.0); MCV 92 fL (80-95); MPV 10.9 fL (8.0-11.0); Platelet Count 224 10^3/uL (130-400); RBC 4.25 10^6/uL (3.93-5.22); RDW 12.2 % (11.7-14.6); RDW-SD 40.9 fL; WBC 9.53 10^3/uL (4.4-10.8)
[2025-02-03] MEDS: Oxytocin/Normal Saline 30 UNIT/500 ML BAG 2 UNITS IV (12:45)
[2025-02-03] MEDS: Lactated Ringers 1,000 ML 125 ML IV (12:47)
[2025-02-03] MEDS: Penicillin G POT. 5,000,000 UNITS in Normal Saline 100 ML 200 UNITS IVPB (13:15)
--- NOTE | 2025-02-03 14:26 | W.OBNST ---
Date of service: 02/03/25 Time of Service: 10:00 NST Evaluation Reason for NST Reasons for Nonstress Test: INTRA-UTERINE GROWTH RES Gestational Age Gestational Age in Weeks and Days: 37 Weeks and 6Days Test and Monitor Explained Test/Monitor Explained: Test Explained, Monitor Explained and Patient Verbalized Understanding Vital Signs Blood Pressure: 112/62 Pulse: 77 Temperature: 98.4 F Weight: 168 lb NST Information Date on Monitor: 02/03/25 Time on Monitor: 09:40 Date off Monitor: 02/03/25 Time off Monitor: 10:12 Total Time on Monitor: 32 NST Interventions: None NST Evaluation Patient States Movement: Present FHR Baseline: 145 Variability: Moderate 6-25 bpm Accelerations: 15x15 Decelerations: None NST Results: Reactive Note Ultrasound Done: N/A. NST Note NST Reviewed and Verified by: Payton Renae
--- NOTE | 2025-02-03 15:15 | W.PM.OBNL1 ---
Date of service: 02/03/25 Time of Service: 15:15 Pelvic Exam Comments: Not repeated. Contractions Contraction Frequency(min): q4min Fetus A Heart Rate Baseline: 135 Variability: Moderate (6-25 BPM) Categories: Category I Accelerations: 15 X 15 Decelerations: None (Had a series of 3 subtle late decels ~30min ago with resolution with position change) Assessment and Plan Assessment and plan (1) Symmetrical growth restriction: Status: Acute Assessment and plan: P1 @37.6wks undergoing induction of labor for FGR with pitocin. GBS+ on ppx. Had a series of 3 late decels with quick resolution to Cat 1 FHT after position change. Will re-evaluate in about 2hrs with possible AROM. Objective Abnormal lab results 02/03/25 Range/Units 12:21 Absolute Neutrophils 7.23 H (1.2-6.7) 10^3/uL Temp Pulse Resp BP 98.2 F 101 H 16 122/73 02/03/25 10:59 02/03/25 13:27 02/03/25 10:59 02/03/25 13:27 Laboratory Results WBC 9.53 10^3/uL (4.4-10.8) 02/03/25 12:21 RBC 4.25 10^6/uL (3.93-5.22) 02/03/25 12:21 Hgb 13.4 g/dL (11.2-15.7) 02/03/25 12:21 Hct 39.2 % (36.0-46.0) 02/03/25 12:21 MCV 92 fL (80-95) 02/03/25 12:21 MCH 31.5 pg (27.0-33.0) 02/03/25 12:21 MCHC 34.2 % (32.0-36.0) 02/03/25 12:21 RDW 12.2 % (11.7-14.6) 02/03/25 12:21 Plt Count 224 10^3/uL (130-400) 02/03/25 12:21 MPV 10.9 fL (8.0-11.0) 02/03/25 12:21 Immature Gran % 0.3 % 02/03/25 12:21 Neutrophils % 75.9 % 02/03/25 12:21 Lymphocytes % 15.0 % 02/03/25 12:21 Monocytes % 4.8 % 02/03/25 12:21 Eosinophils % 3.7 % 02/03/25 12:21 Basophils % 0.3 % 02/03/25 12: Nucleated RBC % 0.0 % (0.0-0.3) 02/03/25 12:21 Absolute Neutrophils 7.23 10^3/uL (1.2-6.7) H 02/03/25 12:21 Absolute Lymphocytes 1.43 10^3/uL (1.2-3.4) 02/03/25 12:21 Absolute Monocytes 0.46 10^3/uL (0.1-0.8) 02/03/25 12:21 Absolute Eosinophils 0.35 10^3/uL (0.0-0.7) 02/03/25 12:21 Absolute Basophils 0.03 10^3/uL (0.0-0.2) 02/03/25 12:21 ABO/Rh O Positive 02/03/25 12:21 Antibody Screen NEGATIVE 02/03/25 12:21 Vital Signs Reviewed: Yes Subjective Interval history since last seen: Pt reports feeling the contractions but still mild. Some increase in pelvic pressure. No bleeding or LOF. Results Hemoglobin/Hematocrit: Hgb 13.4 g/dL (11.2-15.7) 02/03/25 12:21 Hct 39.2 % (36.0-46.0) 02/03/25 12:21 Abnormal Lab Findings: Abnormal Labs 02/03/25 12:21 Absolute Neutrophils 7.23 H
--- NOTE | 2025-02-03 17:47 | W.PM.OBNL1 ---
Date of service: 02/03/25 Time of Service: 15:15 Pelvic Exam Dilation: 3 Effacement (%): 70 station: -2 Cervix Position: mid Consistency: medium Contractions Contraction Frequency(min): q2-4 Fetus A Heart Rate Baseline: 140 Presentation: Cephalic Variability: Moderate (6-25 BPM) Categories: Category II Accelerations: 15 X 15 Decelerations: Variable Recurrence: Intermittent Amniotic Membrane Status: Ruptured Rupture Method: Artifical Amniotic Fluid: Clear Assessment and Plan Assessment and plan (1) Symmetrical growth restriction: Status: Acute Assessment and plan: P1 @37.6wks undergoing induction of labor for FGR with pitocin. GBS+ on ppx. S/p AROM to clear fluid. Cat 2 FHT with intermittent variable decels but overall reassuring. Will continue pitocin with anticipation of NVD. Objective Abnormal lab results 02/03/25 Range/Units 12:21 Absolute Neutrophils 7.23 H (1.2-6.7) 10^3/uL Temp Pulse Resp BP 98.2 F 75 16 110/66 02/03/25 10:59 02/03/25 17:23 02/03/25 10:59 02/03/25 17:23 Laboratory Results WBC 9.53 10^3/uL (4.4-10.8) 02/03/25 12:21 RBC 4.25 10^6/uL (3.93-5.22) 02/03/25 12:21 Hgb 13.4 g/dL (11.2-15.7) 02/03/25 12:21 Hct 39.2 % (36.0-46.0) 02/03/25 12:21 MCV 92 fL (80-95) 02/03/25 12:21 MCH 31.5 pg (27.0-33.0) 02/03/25 12:21 MCHC 34.2 % (32.0-36.0) 02/03/25 12:21 RDW 12.2 % (11.7-14.6) 02/03/25 12:21 Plt Count 224 10^3/uL (130-400) 02/03/25 12:21 MPV 10.9 fL (8.0-11.0) 02/03/25 12:21 Immature Gran % 0.3 % 02/03/25 12:21 Neutrophils % 75.9 % 02/03/25 12:21 Lymphocytes % 15.0 % 02/03/25 12:21 Monocytes % 4.8 % 02/03/25 12:21 Eosinophils % 3.7 % 02/03/25 12:21 Basophils % 0.3 % 02/03/25 12:21 Nucleated RBC % 0.0 % (0.0-0.3) 02/03/25 12:21 Absolute Neutrophils 7.23 10^3/uL (1.2-6.7) H 02/03/25 12:21 Absolute Lymphocytes 1.43 10^3/uL (1.2-3.4) 02/03/25 12:21 Absolute Monocytes 0.46 10^3/uL (0.1-0.8) 02/03/25 12: Absolute Eosinophils 0.35 10^3/uL (0.0-0.7) 02/03/25 12:21 Absolute Basophils 0.03 10^3/uL (0.0-0.2) 02/03/25 12:21 ABO/Rh O Positive 02/03/25 12:21 Antibody Screen NEGATIVE 02/03/25 12:21 Vital Signs Reviewed: Yes Subjective Interval history since last seen: Ctxs still mild. +pelvic pressure. Results Hemoglobin/Hematocrit: Hgb 13.4 g/dL (11.2-15.7) 02/03/25 12:21 Hct 39.2 % (36.0-46.0) 02/03/25 12:21 Abnormal Lab Findings: Abnormal Labs 02/03/25 12:21 Absolute Neutrophils 7.23 H
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
--- NOTE | 2025-02-03 19:35 | W.PM.OBNL1 ---
Date of service: 02/03/25 Time of Service: 19:35 Pelvic Exam Dilation: 6 Effacement (%): 90 station: 0 Contractions Contraction Frequency(min): q2-4 Fetus A Heart Rate Baseline: 145 Variability: Moderate (6-25 BPM) Categories: Category II Accelerations: Present Decelerations: Early and Variable Recurrence: Intermittent Amniotic Membrane Status: Ruptured Rupture Method: Artifical Amniotic Fluid: Clear Assessment and Plan Assessment and plan (1) Symmetrical growth restriction: Status: Acute Assessment and plan: P1 @37.6wks undergoing induction of labor for FGR with pitocin. GBS+ on ppx. S/p AROM to clear fluid. Cat 2 FHT with intermittent variable decels but overall reassuring. Will continue pitocin with anticipation of NVD. Objective Abnormal lab results 02/03/25 Range/Units 12: Absolute Neutrophils 7.23 H (1.2-6.7) 10^3/uL Temp Pulse Resp BP Pulse Ox 97.9 F 77 16 137/95 H 98 02/03/25 19:33 02/03/25 19:33 02/03/25 19:33 02/03/25 19:33 02/03/25 19:33 Laboratory Results WBC 9.53 10^3/uL (4.4-10.8) 02/03/25 12:21 RBC 4.25 10^6/uL (3.93-5.22) 02/03/25 12:21 Hgb 13.4 g/dL (11.2-15.7) 02/03/25 12:21 Hct 39.2 % (36.0-46.0) 02/03/25 12:21 MCV 92 fL (80-95) 02/03/25 12:21 MCH 31.5 pg (27.0-33.0) 02/03/25 12:21 MCHC 34.2 % (32.0-36.0) 02/03/25 12:21 RDW 12.2 % (11.7-14.6) 02/03/25 12:21 Plt Count 224 10^3/uL (130-400) 02/03/25 12:21 MPV 10.9 fL (8.0-11.0) 02/03/25 12:21 Immature Gran % 0.3 % 02/03/25 12:21 Neutrophils % 75.9 % 02/03/25 12:21 Lymphocytes % 15.0 % 02/03/25 12:21 Monocytes % 4.8 % 02/03/25 12:21 Eosinophils % 3.7 % 02/03/25 12:21 Basophils % 0.3 % 02/03/25 12:21 Nucleated RBC % 0.0 % (0.0-0.3) 02/03/25 12:21 Absolute Neutrophils 7.23 10^3/uL (1.2-6.7) H 02/03/25 12:21 Absolute Lymphocytes 1.43 10^3/uL (1.2-3.4) 02/03/25 12:21 Absolute Monocytes 0.46 10^3/uL (0.1-0.8) 02/03/25 12:21 Absolute Eosinophils 0.35 10^3/uL (0.0-0.7) 02/03/25 12:21 Absolute Basophils 0.03 10^3/uL (0.0-0.2) 02/03/25 12:21 ABO/Rh O Positive 02/03/25 12:21 Antibody Screen NEGATIVE 02/03/25 12:21 Vital Signs Reviewed: Yes Subjective Interval history since last seen: Pt feeling increased pressure and more pain with contractions Results Hemoglobin/Hematocrit: Hgb 13.4 g/dL (11.2-15.7) 02/03/25 12:21 Hct 39.2 % (36.0-46.0) 02/03/25 12:21 Abnormal Lab Findings: Abnormal Labs 02/03/25 12:21 Absolute Neutrophils 7.23 H
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
[2025-02-03] MEDS: Oxytocin/Normal Saline 30 UNIT/500 ML BAG 95 UNITS IV (19:55)
--- NOTE | 2025-02-03 20:33 | W.OBDELIVERY ---
Date of service: 02/03/25 Time of Service: 20:00 OB Labor/ Delivery Information Baby A Delivery Delivery Method: Spontaneaous Presentation: Cephalic Vertex Position: Left Occipital Anterior Cord Description-Baby A: 3 Vessels Estimated Blood Loss: 150 Delivery Outcome: Liveborn Note: Fiorella quickly progressed from 6cm to 9cm just before she was about to get an epidural. She then began pushing involuntarily and quickly brought the baby to . She pushed once to deliver the head followed by the shoulders with a compound left hand. The baby was placed brought up to mom but she did not want to hold her at that time so she was taken to the warmer after the cord was clamped x2 and cut. Cord blood collected. The placenta delivered with gentle cord traction and fundal massage and appeared intact. There was a small first degree laceration that was repaired in a running fashion. Fundus was firm with good hemostasis. Mom and baby stable at time of note. Providers Doctor: Payton Renae Nurse: Jayda Lopez Nurse: Rosmery Kim Labor/Delivery Information Number of Babies in Womb: 1 Steroids Given: None Reason Steroids Not Administered: N/A Group Beta Strep: Positive Antibiotics Administered: Yes Number of Doses of Antibiotics: 1 Rubella Status: Immune Blood Type: O+ Varicella Immunity: Immune Shoulder Dystocia: No Stages of Labor Onset of Labor Date: 02/03/25 Onset of Labor Time: 19:11 Complete Dilatation Date: 02/03/25 Complete Dilatation Time: 19:50 Labor - Stage 1 Duration: 39 minutes ROM Baby A: 02/03/25 ROM Baby A: 17:29 Infant Delivery Date-Baby A: 02/03/25 Infant Delivery Time-Baby A: 19:52 Labor Stage 2 Duration: 2 minutes Placenta Delivery Date-Baby A: 02/03/25 Placenta Delivery Time-Baby A: 19:57 Labor-Stage 3 Duration: 5 minutes Total Length of Labor-Baby A: 41 minutes Placenta Status: Delivered Baby A Gender: Female Gestational Status: Early Term (37-38.6 wks) Gestational Age in Weeks/Days: 37 Weeks and 6 Days Length-Baby A: 17.75 in Head Circumference-Baby A: 12.75 in
[2025-02-03] MEDS: Ibuprofen 600 MG TAB PO (22:00)
[2025-02-03] MEDS: Acetaminophen 325 MG TAB 650 MG PO (22:00)
[2025-02-04 09:10] VITALS: BP 128/83; PULSE 101; RESP 18; TEMP 36.4; O2SAT 100
[2025-02-04] MEDS: Budesonide/Formoterol 160/4.5 6 GM 60 PUFF INH IH (10:10)
[2025-02-04 12:38] VITALS: BP 118/74; PULSE 16; TEMP 36.5
[2025-02-04] MEDS: Acetaminophen 325 MG TAB 650 MG PO (16:37)
[2025-02-04] MEDS: Ibuprofen 600 MG TAB PO (16:38)
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
[2025-02-05] MEDS: Acetaminophen 325 MG TAB 650 MG PO (03:31)
[2025-02-05] MEDS: Ibuprofen 600 MG TAB PO (03:31)
[2025-02-05 08:00] VITALS: BP 113/68; PULSE 84; RESP 16; TEMP 36.5; O2SAT 99
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
== END 2025-02-05 13:35 | disposition home or self-care (01) | DRG 807 ==
LOC: BCD 12:06 → OBS 12:06
PROVIDERS: Admitting Provider Obstetrics & Gynecology; Visit Provider Obstetrics & Gynecology
DX: O99.824 Streptococcus B carrier state complicating childbirth (principal); Z37.0 Single live birth; Z3A.37 37 weeks gestation of pregnancy; O36.5930 Maternal care for other known or suspected poor fetal growth, third trimester, not applicable or unspecified; O70.0 First degree perineal laceration during delivery; O99.344 Other mental disorders complicating childbirth; F41.8 Other specified anxiety disorders; O99.334 Smoking (tobacco) complicating childbirth; F17.290 Nicotine dependence, other tobacco product, uncomplicated; Z91.414 Personal history of adult intimate partner abuse; Z62.810 Personal history of physical and sexual abuse in childhood
CPT/HCPCS: 86850; 86900; 86901; 85025; J2540

== ENCOUNTER 2025-02-12 11:54 | Outpatient (REF) | payer OTHER, SELFPAY | END 2025-02-12 11:55 | disposition home or self-care (01) | LOC: LBN 11:54 | PROVIDERS: Visit Provider Obstetrics & Gynecology | DX: R35.0 Frequency of micturition (principal) | CPT/HCPCS: 87077; 87086; 87186 ==

== ENCOUNTER 2025-03-18 09:13 | Emergency (ER) | payer OTHER, SELFPAY ==
[2025-03-18 09:20] VITALS: BP 132/83; PULSE 99; RESP 20; TEMP 36.7; O2SAT 95
[2025-03-18 09:45] LABS: Abs Immature Grans 0.01 10^3/uL (0.0-0.06); HCT 42.0 % (36.0-46.0); HGB 14.6 g/dL (11.2-15.7); Immature Grans % 0.2 %; MCH 30.8 pg (27.0-33.0); MCHC 34.8 % (32.0-36.0); MCV 89 fL (80-95); MPV 10.4 fL (8.0-11.0); Platelet Count 233 10^3/uL (130-400); RBC 4.74 10^6/uL (3.93-5.22); RDW 11.1 % (11.7-14.6); RDW-SD 36.1 fL; WBC 6.10 10^3/uL (4.4-10.8)
[2025-03-18] MEDS: Famotidine 20 MG/2 ML VIAL IVP (09:46)
[2025-03-18] MEDS: diphenhydrAMINE 50 MG/ML VIAL 25 MG IVP ×2 (09:46→12:20)
[2025-03-18] MEDS: Dexamethasone 10 MG/ML VIAL IVP (09:46)
[2025-03-18] MEDS: Normal Saline 1,000 ML 1000 ML IV (09:47)
[2025-03-18 10:01] LABS: ALT 13 U/L (10-49); AST 19 U/L (<34); Albumin 4.6 g/dL (3.4-5.0); Alkaline Phosphatase 108 U/L (46-116); Anion Gap 10.4 mmol/L (3-11); BUN 11 mg/dL (9-23); Bilirubin, Total 0.80 mg/dL (0.2-1.2); CO2 25.6 mmol/L (20.0-31.0); Calcium 9.3 mg/dL (8.3-10.6); Chloride 108 mmol/L (98-107); Glucose 65 mg/dL (74-106); Potassium 3.7 mmol/L (3.5-5.1); Sodium 144 mmol/L (136-145); Total Protein 7.3 g/dL (5.7-8.2)
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
[2025-03-18 13:52] VITALS: BP 103/63; PULSE 95; RESP 18; O2SAT 99
== END 2025-03-18 19:33 | disposition home or self-care (01) ==
PROVIDERS: Emergency Provider Physician Assistant
DX: T78.3XXA Angioneurotic edema, initial encounter (principal)
CPT/HCPCS: 99283; 99284; 96374; 96375; 96376; 80053; 96361; 84146; 85025; 86160; J1100; J1200